=== PATIENT | male | born 1955 | race Caucasian/White ===

== ENCOUNTER 2018-02-10 11:24 | Outpatient (CLI) | payer MEDICARE, SELFPAY ==
--- NOTE | 2018-02-10 11:34 | DI.RAD_ITS ---
SYMPTOMS/DIAGNOSIS: LUMBOSACRAL RADICULOPATHY, M54.16 LUMBAR SPINE: AP, lateral and bilateral oblique views. There are no priors for comparison. There are five lumbar type vertebral bodies. No spondylolysis or spondylolisthesis is identified. The disc heights are well maintained. There are small endplate osteophytes present on multiple levels of the lumbar spine. There are degenerative changes of the facets seen in the lower lumbar spine. No acute fractures or subluxations are seen. IMPRESSION: Moderate degenerative changes of the lumbar spine.
== END 2018-02-10 11:44 ==
LOC: LBO 11:27 → DI 11:27
PROVIDERS: Visit Provider Family Medicine
DX: M54.6 Pain in thoracic spine (principal); M47.26 Other spondylosis with radiculopathy, lumbar region
CPT/HCPCS: 72110

== ENCOUNTER → 2018-05-16 09:02 | Outpatient (BNVA) | payer MEDICARE, SELFPAY | PROVIDERS: PCP Family Medicine; Visit Provider Physical Therapy Assistant | DX: Z12.11 Encounter for screening for malignant neoplasm of colon (principal) ==

== ENCOUNTER 2018-06-13 09:01 | Day surgery (SDC) | payer MEDICARE, SELFPAY ==
--- NOTE | 2018-06-13 06:37 | W.PM.DSUDISC ---
Discharge Plan Disposition Patient Disposition: HOME Condition: Good Discharge Details Reason For Visit: Colon Cancer screening Attending Provider: Naomi Hannah Primary Care Provider: Matt Muñoz Home Meds and New Rx's Prescriptions: Continued acetaminophen-codeine [Tylenol-Codeine #3] 300-30 mg Tablet 1 - 2 tab PO .Q4-6 PRNRF: 0 Discontinued polyethylene glycol 3350 17 gram/dose powder 238 g PO ONCE Qty: 238 RF: 0 bisacodyl [Dulcolax (bisacodyl)] 5 mg tablet,delayed release (DR/EC) 5 mg PO ONCE Qty: 4 RF: 0 Discharge Instructions Instructions: Colonoscopy (DC), Diverticulosis (GEN), Colorectal Polyps (DC) Additional Instructions: Findings: 6 polyps, all of them most likely pre-malignant diverticulosis Follow up: 3-5 years Please call if you develop: fevers >101.5 Nausea or Vomiting Abdominal pain that is not transient DAY SURGERY UNIT POST COLONOSCOPY INSTRUCTIONS 1. Because there will be medication in your system for the next 24 hours, you may feel a little sleepy. Your coordination will be affected. Therefore: a. Do not drive or operate dangerous equipment for 24 hours. b. Do not drink alcohol beverages for 24 hours (not even beer). c. Plan to go home and rest for the day. 2. Generally there are no restrictions on your activity after a day or so has gone by, but you may feel a bit fatigued for a few days. 3 After you arrive home you may have a light meal and return to a normal diet as you can tolerate it without feeling sick to your stomach. 4. After surgery, you may feel pain or discomfort. This should be only transient, but if it persists please contact your doctor. 5. If there are any questions regarding the findings of your procedure, please feel free to contact your doctor. 6. If you are unable to contact your doctor with a problem, contact the hospital at [phone]. 7. Continue all your regular medications unless directed otherwise. I understand the above instructions and have no questions. Signature of Patient or Responsible Adult Escort Date/Time Name of Responsible Adult Escort Signature of Nurse Date/Time Activity:: Activity as Tolerated Diet:: High fiber Discharge Orders Discharge Orders: Discharge Order (Routine); Ordered 06/13/18 Ordered By: Naomi Hannah DS: Diagnosis Discharge Diagnosis (1) S/P colonoscopy: Status: Acute (2) Colorectal polyps: Status: Acute (3) Diverticulosis large intestine w/o perforation or abscess w/o bleeding: Status: Acute
--- NOTE | 2018-06-13 06:38 | COLE_ITS ---
Date of service: 06/13/18 Time of Service: 10:46 Colonoscopy Report Date of procedure: 06/13/18 Pre-op diagnosis general: Colon Cancer Screening Post-op diagnosis procedure note: other (Diverticulosis of descending and sigmoid colon, multiple pre-malignant polyps) Procedure: Colonoscopy with polypectomy by cold forceps and hot snare Surgeon: Naomi Hannah Anesthesia proc note operative: other (General/ ASA2 /ranjana Aguilar, ISOBUTYLENE OPERATOR CHIEF) Estimated blood loss (mL): 5 Pathology: other (Transverse polyp x2, descending, sigmoid x3) Complications: None Disposition: no change Indications: Mr. Perry is a 62-year-old gentleman who was seen in the office for a screening colonoscopy. He has no family history of colon cancer that he is aware of. Risks, benefits and complications have been reviewed. Complications include but are not limited to bleeding, pain, perforation, missed small lesion/polyp, sore throat, aspiration and adverse reaction to the medications. Questions were entertained and answered to their satisfaction and they wished to proceed. No guarantees were given or implied. Prep: Miralax/Dulcolax Procedure Start Time: 10:46 Procedure End Time: 11:29 Retraction Time: 10:53 Findings: 6 polyps One larger pedunculated polyp in the sigmoid colon at 30 cm removed with a hot snare Procedure Description: After informed consent was obtained the patient was taken to the procedure room and placed in a left decubitous position. Monitors were applied and a time out was done. The patients name, date of , procedure, allergies to medications and metal in their body was reviewed. The patient was then sedated. Once sedated and comfortable a rectal exam was done. External exam was normal. Internal exam revealed a normal sphincter tone and no palpable masses. The prostate felt smooth. The scope was then introduced and retro-flexed. No internal hemorrhoids were identified. The scope was then advanced to the cecum without difficulty. The TI and appendiceal orifice were identified. The prep was adequate. The scope was then slowly retracted over 36 minutes back into the rectum. Polyps were removed with cold forceps in the transverse colon, a second polyp was removed with a hot snare in the transverse colon, one polyp was removed in the descending colon removed with a hot snare, one larger (1.5 cm) peduncultaed polyp was removed with a hot snare (at 30 cm). A long stalk was noted to be left behind so this was trimmed using the hot snare. 2 more polyps were removed in the sigmoid colon with cold forceps at 20 cm . There was severe diverticulosis of the sigmoid and descending colon. The scope was removed and the patient was woken up and taken back to Same day surgery in stable condition. The patient tolerated the procedure well and there were no immediate complications. Follow up: The patient should follow up in 3-5 years unless they develop changes in bowel habits or other new gastrointestinal complaints.
[2018-06-13 09:30] VITALS: BP 135/89; PULSE 77; RESP 16; TEMP 36.1; O2SAT 96
[2018-06-13] MEDS: Lactated Ringers 1,000 ML 80 ML IV (09:54)
--- NOTE | 2018-06-13 11:00 | BOWEL_PTH ---
PATIENT: Tyler Perry LOC: [facility] U#:[id number] AGE/SX: 62/M ROOM: RE06/13/[address]: Naomi Hannah MD : [id number] BED: DIS: 06/13/2018 SPEC #: [id number] RECD: 06/13/18 12:44 STATUS: ISIS RERamiro #: [id number] GUERRERO: 06/13/18 11:[address]: Naomi Hannah DEPT: Surgical Specimen RECD BY: Martine Harrison ENTERED: 06/13/18 12:48 SP TYPE: Bowel OTHR DR: Matt Muñoz Tissues: 1 - BIOPSY BOWEL 2 - BIOPSY BOWEL 3 - BIOPSY BOWEL 4 - BIOPSY BOWEL Procedures: GROSS AND MICRO LEVEL 4 Comments: [id number]
[2018-06-13 12:24] VITALS: BP 135/87; PULSE 62; RESP 18; TEMP 35.9; O2SAT 98
== END 2018-06-13 13:15 | disposition home or self-care (01) ==
LOC: SUR 09:02
PROVIDERS: PCP Family Medicine; Visit Provider Surgery
PROC: 0DJD8ZZ Inspection of Lower Intestinal Tract, Via Natural or Artificial Opening Endoscopic (ICD-10-PCS; CPT 45378; principal; 2018-06-13 10:15)
DX: Z12.11 Encounter for screening for malignant neoplasm of colon (principal); D12.3 Benign neoplasm of transverse colon; D12.4 Benign neoplasm of descending colon; D12.5 Benign neoplasm of sigmoid colon; D12.6 Benign neoplasm of colon, unspecified; K57.30 Diverticulosis of large intestine without perforation or abscess without bleeding
CPT/HCPCS: 45385; 45380; 88305

== ENCOUNTER 2018-09-01 15:53 | Emergency (ER) | payer MEDICARE, SELFPAY ==
[2018-09-01 16:10] VITALS: BP 148/94; PULSE 100; RESP 16; TEMP 37; O2SAT 97
--- NOTE | 2018-09-01 16:40 | W.ED.GENAD ---
Discharge Plan Disposition Patient Disposition: HOME Condition: Fair Discharge Details Chief Complaint: RashLesion Clinical Impression: Acute Lyme disease Primary Care Provider: Matt Muñoz ED Provider: Savannah Shin Home Meds and New Rx's Prescriptions: New doxycycline hyclate 100 mg capsule 100 mg PO BID Qty: 42 RF: 0 Continued acetaminophen-codeine [Tylenol-Codeine #3] 300-30 mg Tablet 1 - 2 tab PO .Q4-6 PRNRF: 0 Discharge Instructions Instructions: Doxycycline (By mouth), Lyme Disease (ED) Additional Instructions: Encourage hydration. Please take doxycycline as prescribed. Even if symptoms improve, please take the entire course. Please follow-up with your primary care for reevaluation in 1 week. Attached information on doxycycline, please try to avoid direct sun exposure as discussed. If you develop chest pain, shortness of breath or the new/worsening symptoms please seek care urgently once again. Referrals: Matt Muñoz [Primary Care Provider] - Discharge Data Discharge Date/Time-TO BE ENTERED AT DEPARTURE: 09/01/18 17:18 Medical Decision Making Patient is 63-year-old male presenting today with chief complaint of rash to the right axilla that is been present for the past 5 to 7 days. Unknown exposure. States that overall he has no sensation of this. On exam, patient has a well-defined erythema migrans rash. No evidence of bite. I do not see any in his back areas of his torso. Patient appears nontoxic, normal cardiac exam, patient is noted to be slightly tachycardic at 100 bpm. This may be associate with anxiety. Plan to obtain EKG to evaluate for any evidence of block. We will treat the patient with doxycycline. Discussed the risks associated with doxycycline and expected side effects. Advise close follow-up with primary care, no call them tomorrow to set up an appointment for next week. EKG reviewed by Dr. Falcon. NSR rate 81. Notable for intraventricular conduction delay with J point elevation. No block. No previous EKG to compare too, we will attempt to get one from PCP. Unable to get EKG for comparison. Discussed with patient at length. This is not consistent with Lyme. Patient will be treated with doxycycline. Discussed possible side effects. he will f/u wit PCP next week for reevaluation. discussed possible repeat of EKG which patient will advocate for. We discussed new/worsening symptoms and when to seek care rugently once again. All quesitons and concerns were addressed, he is in agreement iwth this plan. HPI General Mode of arrival: ambulatory. Date/Time Provider Initiated Documentation: 09/01/18 16:39. Limitations to Documentation: no limitations. Information obtained by: patient and RN notes reviewed. History of Present Illness 63 year old M presents to the emergency department with the chief complaint of rash to right axilla, described as mild (denies pain at this time, initially, felt like a bite), and is localized to the right and upper extremity. Patient reports no radiation. Patient started experiencing this day(s) (5-7) and it has been constant. No relieving factors improve symptom(s), No exacerbating factors reported . Patient notes no other symptoms.; denies chest pain, cough, diaphoresis, fever/chills, headaches, loss of appetite, malaise, shortness of breath and weakness. Patient did receive the following treatments prior to arrival, none Related Data Home Medications Medication Instructions Recorded Confirmed acetaminophen-codeine 1 - 2 tab PO .Q4-6 PRN 06/08/18 06/13/18 [Tylenol-Codeine #3] doxycycline hyclate 100 mg PO BID #42 cap 09/01/18 Previous Rx's Medication Instructions Recorded doxycycline hyclate 100 mg PO BID #42 cap 09/01/18 Allergies Allergy/AdvReac Type Severity Reaction Status Date / Time No Known Allergies Allergy Unverified 06/13/18 09:27 General Stated Complaint: RashLesion JOSE JUAN: 4 Review of Systems Constitutional Reports as per HPI, Denies chills, Denies fever(s), Denies headache(s) and Denies weakness ENT Denies headache(s) Cardiovascular Reports as per HPI Respiratory Reports as per HPI and Denies cough Musculoskeletal Reports as per HPI and Denies tingling Integumentary/Breasts Reports as per HPI, Reports rash and Denies wounds Neurologic Reports as per HPI, Denies headache(s), Denies tingling, Denies paresthesias and Denies weakness [facility] Medical History Colorectal polyps (Acute ~06/13/18) Diverticulosis large intestine w/o perforation or abscess w/o bleeding (Acute ~06/13/18) Dyslipidemia (Chronic) Lumbosacral radiculopathy (Chronic) Surgical History H/O right knee surgery (Acute) S/P colonoscopy (Acute ~06/13/18) Social History Smoking/Tobacco Use Status: Former Tobacco Use Quit Date: 02/09/88 Alcohol Intake: current Alcohol Intake frequency: holidays/special occasions only Alcohol type: beer Substance use type: marijuana Details: alcohol: t-7, marijuana: t-7, edibles Do you feel safe at home: Yes Do you feel safe in your relationship?: Yes Exam Const General: cooperative, healthy appearing, comfortable, no acute distress, well developed and well groomed Nutritional Appearance: average body habitus and well nourished Orientation: alert and awake Resp Effort & Inspection: normal respiratory effort, able to speak in complete sentences and no respiratory distress Auscultation: clear to auscultation bilaterally Cardio Rate: regular rate Rhythm: regular rhythm Heart Sounds: S1 normal and S2 normal Back/Spine/Pelvis Thoracic/Lumbar Spine: thoracic and lumbar spine normal to inspection Skin General skin exam: erythema, no fluctuance, no hypertrophy and no induration Rashes: rashes noted (erythema migranes to right axilla) Neuro General: alert and awake Cognition: normal cognition Speech: speech normal Gait: normal gait Motor: muscle tone normal throughout Sensory Exam: no sensory deficits noted Extrem Right upper extremity: full ROM, normal capillary refill, edema and no joint enlargement; abnormal to inspection (rash in right axilla as above) Psych Appearance: grossly normal and well kempt Mental Status: mental status grossly normal Speech and Movement: speech and movement normal Course Vital Signs Temperature 37 C 09/01/18 16:10 Pulse 100 H 09/01/18 16:10 Respiratory Rate 16 09/01/18 16:10 Blood Pressure 148/94 H 09/01/18 16:10 Pulse Oximetry 97 09/01/18 16:10 Temperature 37 C 09/01/18 16:10 Temperature Source Skin 09/01/18 16:10 Pulse 100 H 09/01/18 16:10 Respiratory Rate 16 09/01/18 16:10 Respiratory Effort Non-Labored 09/01/18 16:11 Blood Pressure 148/94 H 09/01/18 16:10 Blood Pressure Position Sitting 09/01/18 16:10 Pulse Oximetry 97 09/01/18 16:10 Oxygen Delivery Method Room Air 09/01/18 16:10 Oxygen Flow Rate 0 09/01/18 16:10
[2018-09-01 17:17] VITALS: BP 148/94; PULSE 100; RESP 16; TEMP 37; O2SAT 97
== END 2018-09-01 17:18 | disposition home or self-care (01) ==
PROVIDERS: Emergency Provider Physician Assistant; PCP Family Medicine
DX: A69.20 Lyme disease, unspecified (principal); R00.0 Tachycardia, unspecified; R94.31 Abnormal electrocardiogram [ECG] [EKG]
CPT/HCPCS: 93005; 99283; 93010

== ENCOUNTER 2018-09-09 10:18 | Outpatient (CLI) | payer MEDICARE, SELFPAY ==
--- NOTE | 2018-09-09 08:50 | MERGE_ITS ---
*[facility]* *[facility]* [address] [place] [address] Date of study: 09/09/2018 Transthoracic Echocardiography M-mode, complete 2D, complete spectral Doppler, and color Doppler *STUDY CONCLUSIONS* Summary: 1. Left ventricle: The cavity size was normal. Wall thickness was normal. Systolic function was normal. The estimated ejection fraction was 55-60%. Wall motion was normal; there were no regional wall motion abnormalities. 2. Aortic valve: Mildly calcified annulus. Trileaflet; normal thickness leaflets. There was trivial regurgitation. 3. Ascending aorta: The ascending aorta was mildly dilated. 3.7 cm. 4. Mitral valve: There was mild regurgitation. 5. Right ventricle: The cavity size was normal. Wall thickness was normal. Systolic function was normal. 6. Pulmonary arteries: Pulmonary systolic pressure was increased, in the range of 35mm Hg to 40mm Hg. *PATIENT PRESENTATION* Height: 185.4cm (73in ) S/D Pressure: 133 / 74 Weight: 93kg (204.6lb ) BSA: 2.2m^2 Test start time: 09:00 AM. Test stop time: 10:00 AM. PERFORMING Unknown PERFORMING [facility] CONSULTING Eduardo Muñoz MD ORDERING Eduardo Muñoz MD REFERRING Eduardo Muñoz MD PROGRAM DIRECTOR AIR TALENT RT Khalida (R)([place])SUPA *PROCEDURE DATA* Procedure information: This study was interpreted by [facility]. Pertinent images and digital data are archived for permanent storage and are available for subsequent review. No prior study was available for comparison. Study status: Routine. Transthoracic echocardiography. M-mode, complete 2D, complete spectral Doppler, and color Doppler. A Transthoracic Echocardiogram was performed. Scanning was performed from the parasternal, apical, subcostal, and suprasternal notch acoustic windows. Images were obtained using an [id number] cardiac ultrasound machine. Image quality was adequate. Study completion: The patient tolerated the procedure well. History: PMH: Left ventricular hypertrophy. Cardiomegaly. I 51.7. *CARDIAC ANATOMY* Left ventricle: The cavity size was normal. Wall thickness was normal. Systolic function was normal. The estimated ejection fraction was 55-60%. Wall motion was normal; there were no regional wall motion abnormalities. Diastolic parameters were not diagnostic. Aortic valve: Mildly calcified annulus. Trileaflet; normal thickness leaflets. Mobility was not restricted. Doppler: Transvalvular velocity was within the normal range. There was no stenosis. There was trivial regurgitation. VTI ratio of LVOT to aortic valve: 0.75. Valve area (VTI): 2.4cm^2. Indexed valve area (VTI): 1.1cm^2/m^2. Peak velocity ratio of LVOT to aortic valve: 0.68. Valve area (Vmax): 2.2cm^2. Indexed valve area (Vmax): 1cm^2/m^2. Mean velocity ratio of LVOT to aortic valve: 0.77. Valve area (Vmean): 2.4cm^2. Indexed valve area (Vmean): 1.1cm^2/m^2. Mean gradient (S): 5.9mm Hg. Peak gradient (S): 13.1mm Hg. Aorta: Aortic root: The aortic root was normal in size. Ascending aorta: The ascending aorta was mildly dilated. 3.7 cm. Mitral valve: Structurally normal valve. Mobility was not restricted. Doppler: Transvalvular velocity was within the normal range. There was no evidence for stenosis. There was mild regurgitation. Valve area by pressure half-time: 4.4cm^2. Indexed valve area by pressure half-time: 2cm^2/m^2. Peak gradient (D): 3.4mm Hg. Left atrium: The atrium was normal in size. Right ventricle: The cavity size was normal. Wall thickness was normal. Systolic function was normal. Pulmonic valve: The pulmonary valve appears to be grossly normal. Doppler: Transvalvular velocity was within the normal range. There was no evidence for stenosis. There was trivial regurgitation. Peak gradient (S): 5.5mm Hg. Tricuspid valve: Structurally normal valve. Doppler: Transvalvular velocity was within the normal range. There was no evidence for stenosis. There was trivial regurgitation. Pulmonary artery: Pulmonary systolic pressure was increased, in the range of 35mm Hg to 40mm Hg. Right atrium: The atrium was normal in size. Pericardium: There was no pericardial effusion. Systemic veins: Inferior vena cava: Well visualized. The vessel was patent and normal in size. The respirophasic diameter changes were in the normal range (greater than or equal to 50%). Baseline ECG: Normal sinus rhythm. Measurements Left ventricle Value Reference LV ID, ED, PLAX 4.6 cm 3.5 - 6.0 LV ID, ES, PLAX 3.4 cm 2.1 - 4.0 LV PW thickness, ED, PLAX 0.9 cm LV end-diastolic volume, 1-p A2C 103 ml LV ejection fraction, 1-p A2C 49 % LV end-diastolic volume, 1-p A4C 100 ml LV ejection fraction, 1-p A4C 51 % LV e', lateral 0.105 m/sec LV E/e', lateral 9 LV e', medial 0.071 m/sec LV E/e', medial 13 LV e', average 0.088 m/sec LV E/e', average 10 Ventricular septum Value Reference IVS thickness, ED, PLAX 1.0 cm LVOT Value Reference LVOT ID, A-P 2.0 cm LVOT area 3.2 cm^2 LVOT peak velocity, S 1.23 m/sec LVOT mean velocity, S 0.89 m/sec LVOT VTI, S 24.8 cm LVOT peak gradient, S 6.1 mm Hg LVOT mean gradient, S 3.6 mm Hg Stroke volume (SV), LVOT DP 78 ml Stroke index (SV/bsa), LVOT DP 36 ml/m^2 Aortic valve Value Reference Aortic valve peak velocity, S 1.8 m/sec Aortic valve mean velocity, S 1.2 m/sec Aortic valve VTI, S 33.0 cm Aortic mean gradient, S 5.9 mm Hg Aortic peak gradient, S 13.1 mm Hg VTI ratio, LVOT/AV 0.75 Aortic valve area, VTI 2.4 cm^2 Velocity ratio, peak, LVOT/AV 0.68 Aortic valve area, peak velocity 2.2 cm^2 Velocity ratio, mean, LVOT/AV 0.77 Aortic valve area, mean velocity 2.4 cm^2 Aortic valve area/bsa, mean velocity 1.1 cm^2/m^2 Aorta Value Reference Aortic root ID, ED 3.2 cm Ascending aorta ID, A-P, S 3.7 cm Left atrium Value Reference LA ID, A-P, ES 3.5 cm LA ID/bsa, A-P 1.6 cm/m^2 <=2.2 LA volume/bsa, ES, 1-p A4C 23 ml/m^2 LA volume, ES, 2-p 43 ml LA volume/bsa, ES, 2-p 19 ml/m^2 LA/aortic root ratio 1.09 Mitral valve Value Reference Mitral E-wave peak velocity 0.92 m/sec Mitral A-wave peak velocity 0.9 m/sec Mitral deceleration time 171 ms 150 - 230 Mitral pressure half-time 50 ms Mitral peak gradient, D 3.4 mm Hg Mitral E/A ratio, peak 1.02 Mitral valve area, PHT, DP 4.4 cm^2 Tricuspid valve Value Reference Tricuspid regurg peak velocity 2.8 m/sec Tricuspid peak RV-RA gradient 32.2 mm Hg Right atrium Value Reference RA area, ES, A4C 14.9 cm^2 8.3 - 19.5 Pulmonic valve Value Reference Pulmonic peak gradient, S 5.5 mm Hg Legend: (L) and (H) [place] values outside specified reference range. I have personally reviewed the images and have reviewed and edited the reported findings. Electronically signed by Alex Campos 09/09/2018 11:49
== END 2018-09-09 10:38 ==
PROVIDERS: PCP Family Medicine; Visit Provider Family Medicine
DX: I51.7 Cardiomegaly (principal); I35.8 Other nonrheumatic aortic valve disorders; I34.0 Nonrheumatic mitral (valve) insufficiency; R94.31 Abnormal electrocardiogram [ECG] [EKG]
CPT/HCPCS: 93306

== ENCOUNTER 2018-09-27 07:05 | Outpatient (CLI) | payer MEDICARE, SELFPAY ==
[2018-09-27 07:42] LABS: HCT 43.6 % (40.0-50.0); HGB 14.4 g/dL (13.5-17.5); Mean Corpuscular Hemoglobin 29.1 pg (27.0-33.0); Mean Corpuscular Volume 88.3 fL (80-95); Mean Platelet Volume 10.5 fL (8.0-11.0); Platelet Count 182 x1000/uL (130-400); RBC 4.94 m/cumm (4.50-6.00); White Blood Cell Count 6.99 k/cumm (4.4-10.8)
[2018-09-28 12:50] LABS: Lyme Ab w Rflx to Lyme Confirm Negative
[2018-09-28 22:00] LABS: Anaplasma phagocytophilum Negative (Negative); B. miyamotoi PCR Negative (Negative); Babesia divergens/MO-1 Negative (Negative); Babesia duncani Negative (Negative); Babesia microti Negative (Negative); Ehrlichia chaffeensis Negative (Negative); Ehrlichia ewingii/canis Negative (Negative); Ehrlichia muris eauclairensis Negative (Negative)
== END 2018-09-27 07:25 ==
PROVIDERS: PCP Family Medicine; Visit Provider Family Medicine
DX: W57.XXXA Bitten or stung by nonvenomous insect and other nonvenomous arthropods, initial encounter (principal); T14.8XXA Other injury of unspecified body region, initial encounter; Z11.8 Encounter for screening for other infectious and parasitic diseases
CPT/HCPCS: 36415; 85027; 87798; 86618

== ENCOUNTER 2019-03-31 11:25 | Emergency (ER) | payer MEDICARE, SELFPAY ==
--- NOTE | 2019-03-31 11:38 | ED.GENADUL_ITS ---
Discharge Plan Disposition Patient Disposition: HOME Condition: Good Discharge Details Chief Complaint: Headache Clinical Impression: URI (upper respiratory infection) Primary Care Provider: Matt Muñoz ED Provider: Savannah Shin Home Meds and New Rx's Prescriptions: No Action acetaminophen-codeine [Tylenol-Codeine #3] 300-30 mg Tablet 1 - 2 tab PO .Q4-6 PRNRF: 0 Discharge Instructions Instructions: Upper Respiratory Infection (ED) Additional Instructions: Encourage water intake. Tylenol and/or ibuprofen as needed for discomfort. You may use nasal saline to help with congestion. Try to put the head of the bed up more at night to help with the postnasal drip. If you develop difficulty breathing, shortness of breath, fevers or other new/worsening symptoms please seek care urgently once again. Otherwise, please follow-up with primary care if improving in the next week. Referrals: Matt Muñoz [Primary Care Provider] - Medical Decision Making Patient is 63-year-old male presenting today with chief complaint of sinus headache. He reports that he has had frontal and maxillary discomfort, congestion, mild cough for the past 3 days. Subjective fever yesterday. Denies any rash. Denies any chest pain. No shortness of breath. No difficulty breathing. No recent travel. On exam, patient is resting comfortably. He is tender over the frontal and maxillary sinuses with palpation. He appears well-hydrated. Lungs are clear. No nuchal rigidity. No rashes noted. Exam is otherwise normal. Advised URI. Advised likely viral. I did encourage close follow-up with primary care. We did discuss supportive care. Patient does describe having cough worse at night and feeling like he has postnasal drip. We did discuss symptomatic management. He was given return precautions. All questions and concerns were addressed and is agreement this plan. HPI General Mode of arrival: ambulatory . Date/Time Provider Initiated Documentation: 03/31/19 11:38 . Limitations to Documentation: no limitations . Information obtained by: patient and RN notes reviewed . History of Present Illness 63 year old M presents to the emergency department with the chief complaint of sinus discomfort, cough, congestion, described as moderate, with intensity rated at 6. Quality is described as aching, and is localized to the face (indicates maxillary and frontal sinuses as are a of discomfort). Patient reports no radiation. Patient started experiencing this day(s) (3) and it has been constant. No relieving factors improve symptom(s), No exacerbating factors reported . Patient notes cough (3 coughs per day), fever/chills (subjective fever yesterday) and headaches (indicates sinuses as area of pain); denies chest pain, diaphoresis, loss of appetite, nausea/vomiting, rash, shortness of breath and weakness. Patient did receive the following treatments prior to arrival, none Related Data Home Medications Medication Instructions Recorded Confirmed acetaminophen-codeine 1 - 2 tab PO .Q4-6 PRN 06/08/18 06/13/18 [Tylenol-Codeine #3] Allergies Allergy/AdvReac Type Severity Reaction Status Date / Time No Known Allergies Allergy Unverified 03/31/19 11:52 General JOSE JUAN: 4 Review of Systems Constitutional Constitutional: Reports as per HPI and Denies headache(s) Eyes Eyes: Reports as per HPI, Denies eye discharge and Denies irritation ENT Ears, Nose, Mouth, and Throat: Reports as per HPI and Denies headache(s) Cardiovascular Cardiovascular: Reports as per HPI, Denies chest pain and Denies dyspnea Respiratory Respiratory: Reports as per HPI and Denies dyspnea Gastrointestinal Gastrointestinal: Reports as per HPI, Denies abdominal pain, Denies change in bowel habits, Denies nausea and Denies vomiting Integumentary/Breasts Skin/Breast: Reports as per HPI and Denies rash Neurologic Neurologic: Reports as per HPI and Denies headache(s) [facility] Social History Smoking/Tobacco Use Status: Former Tobacco Use Quit Date: 02/09/88 Alcohol Intake: current Alcohol Intake frequency: holidays/special occasions only Alcohol type: beer Drug use: Occasionally Substance use type: marijuana Details: alcohol: t-7, marijuana: t-7, edibles Do you feel safe at home: Yes Do you feel safe in your relationship?: Yes Exam Const General: cooperative, healthy appearing, comfortable, no acute distress, well developed and well groomed Nutritional Appearance: average body habitus and well nourished Orientation: alert and awake [facility] Head: normal to inspection, normocephalic and atraumatic Ears: hearing grossly normal bilaterally, external ears normal and TM's normal bilaterally General nose exam: external nose normal and nares normal Face and sinus: normal facial exam, face symmetric and sinus tenderness frontal and maxillary Mouth: oral mucosae normal, lip normal, tongue normal, oropharynx normal and moist mucous membranes Teeth and gingiva: dentition normal Throat: posterior oropharynx normal, tonsils normal and uvula midline Eyes General: appearance normal, both eyes and all related structures Neck Neck: normal visual inspection, full ROM, no lymphadenopathy and no meningeal signs Resp Effort & Inspection: normal respiratory effort, able to speak in complete sentences and no respiratory distress Auscultation: clear to auscultation bilaterally, no rales, no rhonchi and no wheezes Cardio Rate: regular rate Rhythm: regular rhythm Heart Sounds: S1 normal and S2 normal Skin General skin exam: no rashes or lesions noted Neuro General: alert and awake Cognition: normal cognition Speech: speech normal Gait: normal gait Psych Appearance: grossly normal and well kempt Mental Status: mental status grossly normal Speech and Movement: speech and movement normal
[2019-03-31 11:47] VITALS: BP 152/98; PULSE 80; RESP 18; TEMP 36.6; O2SAT 96
[2019-03-31 12:00] VITALS: BP 152/98; PULSE 80; RESP 18; TEMP 36.6; O2SAT 96
== END 2019-03-31 12:00 | disposition home or self-care (01) ==
PROVIDERS: Emergency Provider Physician Assistant; PCP Family Medicine
DX: J06.9 Acute upper respiratory infection, unspecified (principal)
CPT/HCPCS: 99282

== ENCOUNTER 2021-05-14 02:53 | Outpatient (CLI) | payer MEDICARE, SELFPAY ==
[2021-05-14 07:44] LABS: HCT 44.2 % (40.0-50.0); HGB 14.4 g/dL (13.5-17.5); MCH 28.8 pg (27.0-33.0); MCHC 32.6 % (32.0-36.0); MCV 88.4 fL (80-95); MPV 9.7 fL (8.0-11.0); Platelet Count 161 10^3/uL (130-400); WBC 6.85 10^3/uL (4.4-10.8)
[2021-05-14 09:03] LABS: ALT 24 U/L (16-63); AST 15 U/L (15-37); Albumin 4.2 g/dL (3.4-5.0); Alkaline Phosphatase 69 U/L (46-116); Anion Gap 6.5 mmol/L (3-11); BUN 15 mg/dL (7-18); Bilirubin, Total 0.6 mg/dL (0.2-1.0); CO2 31.5 mmol/L (21.0-32.0); CREATININE 1.1 mg/dL (0.70-1.30); Calcium 8.9 mg/dL (8.5-10.1); Calculated LDL 148 mg/dL (<100); Chloride 105 mmol/L (98-107); Cholesterol 209 mg/dL (<200); Glucose 100 mg/dL (74-106); HDL Cholesterol 37 mg/dL (40-60); Potassium 4.4 mmol/L (3.5-5.1); Sodium 143 mmol/L (136-145); Total Protein 7.3 g/dL (6.4-8.2); Triglyceride 120 mg/dL (<150)
== END 2021-05-14 02:54 | disposition home or self-care (01) ==
LOC: LBO 02:53
PROVIDERS: PCP Family Medicine; Visit Provider Family Medicine
DX: E78.5 Hyperlipidemia, unspecified (principal); Z51.81 Encounter for therapeutic drug level monitoring
CPT/HCPCS: 36415; 80053; 80061; 84153; 85027

== ENCOUNTER 2021-06-15 05:58 | Emergency (ER) | payer MEDICARE, SELFPAY ==
[2021-06-15] VITALS (25 sets, daily range): BP systolic 102–132; BP diastolic 67–87; PULSE 86–110; RESP 13–17; TEMP 36.5–36.7; O2SAT 93–96
--- NOTE | 2021-06-15 06:00 | RT.EKG_ITS ---
APPROVED REPORT Exam: Resting ECG Reason for Exam: short of breath Patient Location: E HR:104 bpm ECG Measurements Heart Rate 104 AXIS UT 167 P 64 QRSd 109 QRS -12 QT 323 T 145 QTc 424 Conclusion Sinus tachycardia...rate> 99 Incomplete left bundle branch block...QRSd>110mS, terminal axis(-90,-1) LVH with secondary repolarization abnormality...multi-LVH criteria, abnrm ST-T no significant change from prior
--- NOTE | 2021-06-15 06:39 | ED.GENADUL_ITS ---
Discharge Plan Disposition Patient Disposition: HOME Condition: Stable Discharge Details Clinical Impression: COVID-19 Primary Care Provider: Matt Muñoz ED Provider: Joann Gray Home Meds and New Rx's Prescriptions: New Paxlovid (EUA) 150 mg x 2- 100 mg tablet See Rx Instructions PO .COMPLEX Qty: 6 0RF Rx Instructions: orally per package directions Continued aspirin 325 mg tablet 650 mg PO DAILY 0RF Rx Instructions: takes 2 aspirin every other day, alternating with the acetaminophen-codeine ibuprofen 200 mg tablet 200 mg PO Q6H PRN0RF cyclobenzaprine 5 mg tablet 5 mg PO TID PRN0RF Biofreeze (menthol) 4 % gel 1 applic topical QD-BID PRN0RF acetaminophen-codeine [Tylenol-Codeine #3] 300-30 mg Tablet 1 - 2 tab PO .Q4-6 PRN0RF Discharge Instructions Instructions: COVID-19 (Coronavirus Disease 2019) (ED) Additional Instructions: You are positive for the COVID-19 virus. Drink plenty of fluids and get plenty of rest. Alternate tylenol and motrin as needed and directed for pain. A prescription for Paxlovid has been sent electronically to [facility] in [facility]. Follow-up with your primary care doctor in 1 week. Return to the emergency department with any worsening or new concerning symptoms. Discharge Data Discharge Date/Time-TO BE ENTERED AT DEPARTURE: 06/15/21 08:42 Discharge Physician: Joann Gray Medical Decision Making <Ric Burden MD - Last Filed: 06/15/21 07:51> [age]-year-old male, former smoker, here with myalgia, headache, fatigue, fever and chills over the past 2 days. His partner is positive for COVID with illness over the past few days. He has taken home COVID test that have been negative so far. No signs of focal bacterial infection on exam. Screening EKG was ordered by nursing for tachycardia. This was reviewed and interpreted by me: Please see report, sinus tachycardia, no acute process, no significant change from prior EKG. On examination patient is hemodynamically stable. Patient does meet criteria for pack paxlovid and is interested in treatment. I will check COVID test to confirm positivity. Labs to assess renal. -- Creatinine normal. <Joann Gray, DO - Last Filed: 06/17/21 08:17> 06/15/21 Dr. Burden 6[age]-year-old male, former smoker, here with myalgia, headache, fatigue, fever and chills over the past 2 days. His partner is positive for COVID with illness over the past few days. I told him that they open at 9 and if they have not found it otherwise to have has taken home COVID test that have been negative so far. No signs of focal bacterial infection on exam. Screening EKG was ordered by nursing for tachycardia. This was reviewed and interpreted by me: Please see report, sinus tachycardia, no acute process, no significant change from prior EKG. On examination patient is hemodynamically stable. Patient does meet criteria for pack paxlovid and is interested in treatment. I will check COVID test to confirm positivity. Labs to assess renal. -- Creatinine normal. 06/15/21 Dr. Gray 0800 --please see Dr. Burden's note for initial presentation, exam and plan. Ca se endorsed to follow-up on COVID test and if positive will discharge with prescription for Paxlovid. 0830 --COVID 19 PCR is positive. Discussed with pharmacy and [facility] has Paxlovid available which was confirmed on Covid-19 therapeutics locater website. A prescription for Paxlovid was sent electronically to [facility]. He denies any shortness of breath and his oxygen saturation is 97% on room air. Advised to follow up with the primary care doctor for re-evaluation. Usual and customary return precautions given prior to discharge. Medical Records Medical records reviewed: Yes I reviewed the patient's medical records. Lab Data Lab results reviewed: Yes I reviewed the patient's lab results. Labs: Laboratory Tests Range/Units 06/15/21 06/15/21 06/15/21 06:10 06:10 06:50 WBC (4.4-10.8) 10^3/uL 10.03 RBC (4.36-5.78) 10^6/uL 5.39 Hgb (13.5-17.5) g/dL 15.2 Hct (40.0-50.0) % 45.7 MCV (80-95) fL 85 MCH (27.0-33.0) pg 28.2 MCHC (32.0-36.0) % 33.3 RDW (11.8-14.1) % 13.2 Plt Count (130-400) 10^3/uL 182 MPV (8.0-11.0) fL 10.6 Immature Gran % 0.3 Neutrophils % 86.4 Lymphocytes % 5.3 Monocytes % 7.4 Eosinophils % 0.1 Basophils % 0.5 Nucleated RBC % (0.0-0.3) % 0.0 Absolute Neutrophils (1.2-6.7) 10^3/uL 8.67 H Absolute Lymphocytes (1.2-3.4) 10^3/uL 0.53 L Absolute Monocytes (0.1-0.8) 10^3/uL 0.74 Absolute Eosinophils (0.0-0.7) 10^3/uL 0.01 Absolute Basophils (0.0-0.2) 10^3/uL 0.05 Sodium (136-145) mmol/L 140 Potassium (3.5-5.1) mmol/L 3.7 Chloride (98-107) mmol/L 104 Carbon Dioxide (21.0-32.0) mmol/L 25.8 Anion Gap (3-11) mmol/L 10.2 BUN (7-18) mg/dL 12 Creatinine (0.70-1.30) mg/dL 1.2 Estimated GFR/1.73 m2 (mL/min/1.73m2) >= 60.00 Glucose (74-106) mg/dL 133 H Calcium (8.5-10.1) mg/dL 9.1 COVID-19 Source Not Applicable SARS-CoV-2 (PCR) (Negative) Positive A Influenza Type A (PCR) (Negative) Negative Influenza Type B (PCR) (Negative) Negative RSV (PCR) (Negative) Negative HPI <Ric Burden MD - Last Filed: 06/15/21 07:51> General Mode of arrival: ambulatory . Date/Time Provider Initiated Documentation: 06/15/21 06:22 . Limitations to Documentation: no limitations . Information obtained by: patient . HPI Narrative: 65-year-old male presents with chief complaint of generally not feeling well. Patient notes his partner who he lives with has tested positive for COVID and has been sick for the past few days. He notes he has had symptoms including myalgias, headache, congestion, and brain fog over the past 2 days. Symptoms are moderate with no modifiers. He has no associated chest pain. No shortness of breath. Patient is fully vaccinated against COVID. Related Data Home Medications Medication Instructions Recorded Confirmed acetaminophen 300 mg-codeine 30 mg 1 - 2 tab PO .Q4-6 PRN 06/08/18 06/15/21 tablet (Tylenol-Codeine #3) aspirin 325 mg tablet 650 mg PO DAILY tab 03/28/21 06/15/21 cyclobenzaprine 5 mg tablet 5 mg PO TID PRN 03/28/21 ibuprofen 200 mg tablet 200 mg PO Q6H PRN 03/28/21 06/15/21 menthol 4 % topical gel (Biofreeze 1 applic TOPICAL QD-BID PRN 03/28/21 06/15/21 (menthol)) nirmatrelvir 150 mg x 2-ritonavir See Rx Instructions PO .COMPLEX #6 06/15/21 100 mg tablet (EUA) (Paxlovid tab (EUA)) Previous Rx's Medication Instructions Recorded nirmatrelvir 150 mg x 2-ritonavir See Rx Instructions PO .COMPLEX #6 06/15/21 100 mg tablet (EUA) (Paxlovid tab (EUA)) Allergies Allergy/AdvReac Type Severity Reaction Status Date / Time No Known Allergies Allergy Unverified 06/15/21 06:10 General Stated Complaint: RespSymp JOSE JUAN: 3 Review of Systems <Ric Burden MD - Last Filed: 06/15/21 07:51> All systems reviewed & are unremarkable except as noted in HPI and below Constitutional Constitutional: Reports chills and Reports fever(s) Respiratory Respiratory: Reports as per HPI and Denies cough Musculoskeletal Musculoskeletal: Reports as per HPI PFSH <Ric Burden MD - Last Filed: 06/15/21 07:51> All Active Problems (Updated 06/15/21 @ 08:08 by Joann Gray DO) COVID-19 (Acute) Diverticulosis large intestine w/o perforation or abscess w/o bleeding (Acute ~06/13/18) Colorectal polyps (Acute ~06/13/18) Encounter for screening colonoscopy (Acute) Medical History Dyslipidemia Lumbosacral radiculopathy Tinnitus, bilateral URI (upper respiratory infection) Surgical History H/O right knee surgery S/P colonoscopy (~06/13/18) Social History Smoking/Tobacco Use Status: Former Tobacco Use Quit Date: 02/09/88 Smoking risk assessment performed?: Yes Alcohol Intake: current Alcohol Intake frequency: holidays/special occasions only Alcohol type: beer Drug use: Occasionally Substance use type: marijuana Details: alcohol: t-7, marijuana: t-7, edibles Do you feel safe at home: Yes Do you feel safe in your relationship?: Yes Exam <Ric Burden MD - Last Filed: 06/15/21 07:51> Const General: cooperative and no acute distress HENMT Mouth: moist mucous membranes Eyes Conjunctivae: normal conjunctivae Sclera: normal sclerae Resp Auscultation: clear to auscultation bilaterally, no rales, no rhonchi and no wheezes Cardio Rate: regular rate and not tachycardic Rhythm: regular rhythm GI Palpation: soft, not firm, no guarding, no masses, not rigid and nontender Skin General skin exam: no rashes or lesions noted Neuro General: patient alert, patient awake and tone normal Extrem General: no edema Psych Appearance: grossly normal Mental Status: mental status grossly normal Speech and Movement: speech and movement normal Course <Ric Burden MD - Last Filed: 06/15/21 07:51> Vital Signs Vital signs: Vital Signs Temperature 36.5 C 06/15/21 06:07 Pulse 109 H 06/15/21 06:07 Respiratory Rate 16 06/15/21 06:07 Blood Pressure 132/87 06/15/21 06:07 Pulse Oximetry 96 06/15/21 06:07 Temperature 36.5 C 06/15/21 06:07 Temperature Source Skin 06/15/21 06:07 Pulse 109 H 06/15/21 06:07 Respiratory Rate 16 06/15/21 06:07 Respiratory Effort Non-Labored 06/15/21 06:11 Respiratory Depth Normal 06/15/21 06:11 Blood Pressure 132/87 06/15/21 06:07 Pulse Oximetry 96 06/15/21 06:07 Pain Level 10 06/15/21 06:07 Sign Out <Ric Burden MD - Last Filed: 06/15/21 07:51> Sign Out Data: Sign Out Comment: Follow-up COVID test and if positive plan to discharge on pack Paxlovid. Last updated by Ric Burden MD at 06/15/21 07:49
[2021-06-15 06:57] LABS: Abs Immature Grans 0.03 10^3/uL (0.0-0.06); Absolute Basophil Count 0.05 10^3/uL (0.0-0.2); Absolute Eosinophil Count 0.01 10^3/uL (0.0-0.7); Absolute Lymphocyte Count 0.53 10^3/uL (1.2-3.4); Absolute Monocyte Count 0.74 10^3/uL (0.1-0.8); Absolute Neutrophil Count 8.67 10^3/uL (1.2-6.7); Basophils % 0.5; Eosinophils % 0.1; HCT 45.7 % (40.0-50.0); HGB 15.2 g/dL (13.5-17.5); Immature Grans % 0.3; Lymphocytes % 5.3; MCH 28.2 pg (27.0-33.0); MCHC 33.3 % (32.0-36.0); MCV 85 fL (80-95); MPV 10.6 fL (8.0-11.0); Monocytes % 7.4; Neutrophils % 86.4; Platelet Count 182 10^3/uL (130-400); RBC 5.39 10^6/uL (4.36-5.78); RDW 13.2 % (11.8-14.1); RDW-SD 41.2 fL; WBC 10.03 10^3/uL (4.4-10.8)
[2021-06-15 07:11] LABS: Anion Gap 10.2 mmol/L (3-11); BUN 12 mg/dL (7-18); CO2 25.8 mmol/L (21.0-32.0); CREATININE 1.2 mg/dL (0.70-1.30); Calcium 9.1 mg/dL (8.5-10.1); Chloride 104 mmol/L (98-107); Glucose 133 mg/dL (74-106); Potassium 3.7 mmol/L (3.5-5.1); Sodium 140 mmol/L (136-145)
[2021-06-15 08:02] LABS: Influenza A PCR Negative (Negative); Influenza B PCR Negative (Negative); RSV PCR Negative (Negative)
[2021-06-15 08:04] LABS: COVID-19 PCR Positive (Negative)
== END 2021-06-15 08:42 | disposition home or self-care (01) ==
PROVIDERS: Student in an Organized Health Care Education/Training Program; Emergency Provider Physician Assistant; PCP Family Medicine
DX: U07.1 COVID-19 (principal); R50.9 Fever, unspecified; R51.9 Headache, unspecified; R06.02 Shortness of breath
CPT/HCPCS: 80048; 87637; 93005; 99283; 85025; 93010

== ENCOUNTER → 2021-12-23 09:42 | Outpatient (BNVA) | payer MEDICARE, SELFPAY | PROVIDERS: PCP Family Medicine; Referring Provider Family Medicine; Visit Provider Surgery | DX: Z12.11 Encounter for screening for malignant neoplasm of colon (principal); Z86.010 Personal history of colon polyps ==

== ENCOUNTER 2022-01-14 10:06 | Day surgery (SDC) | payer MEDICARE, SELFPAY ==
--- NOTE | 2022-01-13 22:07 | PDOC.DSDIS_ITS ---
Date of service: 01/14/22 Time of Service: 12:40 Discharge Plan Disposition Patient Disposition: HOME Condition: Good Discharge Details Reason For Visit: Colonoscopy Attending Provider: Saulo Anderson Primary Care Provider: IWONA CHILDERS Home Meds and New Rx's Prescriptions: Continued aspirin 325 mg tablet 650 mg PO DAILY Rx Instructions: takes 2 aspirin every other day, alternating with the acetaminophen-codeine ibuprofen 200 mg tablet 200 mg PO Q6H PRN cyclobenzaprine 5 mg tablet 5 mg PO TID PRN Biofreeze (menthol) 4 % gel 1 applic topical QD-BID PRN acetaminophen-codeine [Tylenol-Codeine #3] 300-30 mg Tablet 1 - 2 tab PO .Q4-6 PRN Discontinued bisacodyl [Dulcolax (bisacodyl)] 5 mg tablet,delayed release (DR/EC) 5 mg PO ONCE Qty: 4 0RF Rx Instructions: Take according to provider's instructions for colonoscopy prep. polyethylene glycol 3350 17 gram/dose powder 17 g PO ONCE Qty: 238 0RF Rx Instructions: To be taken as directed by prescriber's office for colonoscopy prep. Discharge Instructions Instructions: Diverticulosis (DC) Additional Instructions: 1. If tolerated, consume a soft, low fiber diet for 1-2 days. [address] Do not drive, drink alcohol, operate machinery, make critical decisions, or do activities that require coordination or balance for 24 hours. 3. Because air was put into your colon during the procedure, expelling air from your rectum (passing gas or farting) is normal. 4. You may not have a bowel movement for 1-3 days because of the colonoscopy prep. This is normal. 5. Go directly to the emergency room if you notice any of the following: Develop chills (warm to touch), or if you have a thermometer and your temperature is above 101 Difficulty breathing or difficultly swallowing Persistent vomiting Severe abdominal pain, other than gas cramps Severe chest pain Black, tarry stools Any bleeding ? exceeding one tablespoon 6. Call your physician if the site where your intravenous was started becomes red, swollen, painful, and warm to touch. 7. Your physician has reviewed your pre-procedure medications. Please continue to take those medications as previously ordered. You will be given specific information/education regarding any changes to your medications before leaving. Activity:: Activity as Tolerated Diet:: As Tolerated DS: Diagnosis Discharge Diagnosis (1) Diverticulosis large intestine w/o perforation or abscess w/o bleeding: Status: Acute Asessment and Plan: You had a normal colonoscopy today. Based on the results of your previous colonoscopy, combined with the negative test today, the recommendation is to fol low-up with another colonoscopy in 5 to 10 years.
--- NOTE | 2022-01-13 22:08 | W.COLOREPORT ---
Date of service: 01/14/22 Time of Service: 12:17 Colonoscopy Report Date of procedure: 01/14/22 Pre-op diagnosis general: screening colonoscopy Post-op diagnosis procedure note: other (Normal colonoscopy) Procedure: routine health maintenance screening colonoscopy Surgeon: Saulo Anderson Anesthesia Type: General:No Airway Estimated blood loss (mL): 0 Pathology: none sent Complications: None Disposition: same day Indications: Tyler is a 66-year-old man who underwent screening colonoscopy in the past. He was diagnosed with multiple with tubular adenomas 1 of which was greater than 15 mm. He is following up for his next colonoscopy. Prep: Miralax/Dulcolax Procedure Start Time: 11:54 Procedure End Time: 12:17 Retraction Time: 18 Findings: Normal colonoscopy Procedure Description: After the induction of monitored anesthetic care, and with the patient in left lateral decubitus position, I began by performing an external anorectal exam.? Perineum and skin were normal, as was the anal verge.? There was no evidence of external hemorrhoids.? Next, I performed a digital rectal exam.? I did not appreciate any abnormal findings.? Next, I advanced a colonoscope into the rectal vault.? I performed retroflexion.? There was very mild evidence of internal hemorrhoids.? Using insufflation, I then advanced the colonoscope beyond the rectal folds and into the sigmoid colon before advancing towards the cecum.? The quality of the prep was excellent.? The scope was noted to be in the cecum by identification of the ileocecal valve and appendiceal orifice.? I then began withdrawing the colonoscope using repeated irrigation as necessary for full evaluation of the colonic mucosa. ?Once the scope was withdrawn to the level of the rectum, great care was taken to examine portions of the rectal folds.? Based on the findings of the previous colonoscopy, I think particular attention to detail regarding the sites of the previous polypectomies. I did not see any evidence of regrowth, or new pathology in those areas. Finally, the scope was withdrawn and the patient was brought to the same-day surgery recovery unit as the anesthetic wore off. ?The findings and instructions were shared with the patient prior to discharge. I explained the findings Tyler, and although the colonoscopy is negative, based on the size of his previous tubular adenoma, I do recommend another follow-up colonoscopy in 5 years.
[2022-01-14 10:26] VITALS: BP 134/84; PULSE 83; RESP 16; TEMP 36.3; O2SAT 97
[2022-01-14] MEDS: Lactated Ringers 1,000 ML 80 ML IV (10:33)
--- NOTE | 2022-01-14 11:02 | W.ANESPRE ---
General Info Date of Service Date Performed: 01/14/22 Height: 6 ft Weight: 91.2 kg Body Mass Index (BMI): 27.2 Surgical Procedure: Operation Date: 01/14/22 11:05 Proposed Procedure Side Surgeon p Milad Anderson MD Meds Allergies and Home Medications Allergies Allergy/AdvReac Type Severity Reaction Status Date / Time No Known Allergies Allergy Unverified 01/14/22 10:38 Home Medication Medication Instructions Recorded acetaminophen 300 mg-codeine 30 mg 1 - 2 tab PO .Q4-6 PRN 06/08/18 tablet (Tylenol-Codeine #3) aspirin 325 mg tablet 650 mg PO DAILY 03/28/21 cyclobenzaprine 5 mg tablet 5 mg PO TID PRN 03/28/21 ibuprofen 200 mg tablet 200 mg PO Q6H PRN 03/28/21 menthol 4 % topical gel (Biofreeze 1 applic topical QD-BID PRN 03/28/21 (menthol)) Current Visit Medications: Current Medications Generic Name Dose Route Start Last Admin Trade Name Pablo PRN Reason Stop Dose Admin Ringer's Solution 1,000 mls @ 80 mls/hr 01/14/22 06:00 01/14/22 10:33 IV 02/12/22 23:59 80 mls/hr INFUSION OSCAR Administration IV Miscellaneous Supplies 1 each 01/14/22 06:00 Iv Access IV 02/12/22 23:59 DIRECTED OSCAR Sodium Chloride 0 ml 01/14/22 06:00 Normal Saline Flush 10 Ml Syr IV 02/12/22 23:59 PRN PRN Sodium Chloride 0 ml 01/14/22 06:00 Normal Saline 10 Ml Vial IJ 02/12/22 23:59 DIRECTED PRN Sterile Water 0 ml 01/14/22 06:00 Water,Injection,Sterile 10 Ml Vial IJ 02/12/22 23:59 DIRECTED PRN PFSH Active Problems Active Problems: Problem Status Onset Code COVID-19 U07.1 Diverticulosis large intestine w/o perforation or abscess w/o bleeding ~06/13/18 K57.30 Colorectal polyps ~06/13/18 K63.5 Encounter for screening colonoscopy Z12.11 Medical History Medical History Dyslipidemia Lumbosacral radiculopathy Tinnitus, bilateral URI (upper respiratory infection) Surgical History Surgical History H/O right knee surgery S/P colonoscopy (~06/13/18) Tobacco Smoking/Tobacco Use Status: Former Tobacco Use Alcohol Alcohol Intake: current Alcohol intake frequency: holidays/special occasions only Alcohol type: beer Substance Use Substance use: Occasionally Substance use type: marijuana Details: alcohol: t-7, marijuana: t-7, edibles Vital Signs and Lab Results Vital Signs Most Recent Vital Signs in EMR: Most Recent Vital Signs Temp Pulse Resp BP Pulse Ox 36.3 C L 83 16 134/84 97 01/14/22 10:26 01/14/22 10:26 01/14/22 10:26 01/14/22 10:26 01/14/22 10:26 Lab Results Blood Type / Crossmatch: No Data to Display Complete Blood Count: No Data to Display Complete Metabolic Panel: No Data to Display Liver Function Panel: No Data to Display Coagulation Panel: No Data to Display Cardiac Panel: No Data to Display Arterial Blood Gas: No Data to Display Venous Blood Gas: No Data to Display Pancreas Panel: No Data to Display Thyroid Panel: No Data to Display Infectious Disease: No Data to Display Blood Cultures: No Data to Display Toxicology Panel: No Data to Display Imaging and Studies Imaging and Studies Study information below may be from another EMR and interpreted by another provider. Please see original notes in EMR for more complete details. EKG Summary: 06/15/2021: Conclusion Sinus tachycardia...rate> 99 Incomplete left bundle branch block...QRSd>110mS, terminal axis(-90,-1) LVH with secondary repolarization abnormality...multi-LVH criteria, abnrm ST-T no significant change from prior Echocardiogram Summary: 09/09/2018: *STUDY CONCLUSIONS* Summary: 1. Left ventricle: The cavity size was normal. Wall thickness was normal. Systolic function was normal. The estimated ejection fraction was 55-60%. Wall motion was normal; there were no regional wall motion abnormalities. 2. Aortic valve: Mildly calcified annulus. Trileaflet; normal thickness leaflets. There was trivial regurgitation. 3. Ascending aorta: The ascending aorta was mildly dilated. 3.7 cm. 4. Mitral valve: There was mild regurgitation. 5. Right ventricle: The cavity size was normal. Wall thickness was normal. Systolic function was normal. 6. Pulmonary arteries: Pulmonary systolic pressure was increased, in the range of 35mm Hg to 40mm Hg. Anesthesia Assessment and Plan Anesthesia History Personal History: No History of Anesthesia Complications Family History: No Family History of Anesthesia Complications Exercise Tolerance Exercise Tolerance: Metabolic Equivalents>4 Pertinent Negatives Pertinent Negatives: No Symptoms of GERD, No Major Cardiovascular Symptoms or Complaints, No Major Pulmonary Symptoms or Complaints and No History of CVA/TIA Cardiac & Pulmonary Exam Cardiac Exam: Normal S1/S2 Heart Sounds Pulmonary Exam: Clear Bilateral Breath Sounds Implantable Cardiac Device Does patient have a Pacemaker or an ICD?: No Airway Exam Known Difficult Airway: No Mallampati Class: 4 Mouth Opening: Normal (> 3cm) Thyromental Distance: Greater than 3 cm Neck Range of Motion: Full ROM Neck Circumference: Normal Teeth Condition: Normal Dentition ASA Classification ASA Score: ASA 2 Emergency Case?: No NPO Status NPO Status: NPO Clears >2 hours, Solids >8 hours Anesthesia Plan Resuscitation Status: Full Code Anesthesia Technique: General Anesthesia Airway Planned: Natural Airway Monitors Used: Standard Monitors
[2022-01-14 11:40] VITALS: BMI 27.2
[2022-01-14 12:30] VITALS: BP 134/84; PULSE 83; RESP 16; TEMP 36.3; O2SAT 96
--- NOTE | 2022-01-14 12:32 | W.ANESPOSTOP ---
Postoperative Evaluation Date, Time and Location Date Performed: 01/14/22 Time Performed: 12:32 Patient Location: Day Surgery Unit Vital Signs Most Recent Imported Vital Signs: Most Recent Vital Signs Temp Pulse Resp BP Pulse Ox 36.3 C L 83 16 134/84 97 01/14/22 10:26 01/14/22 10:26 01/14/22 10:26 01/14/22 10:26 01/14/22 10:26 Most Recent Manually Entered Vital Signs: Adult Blood Pressure: 113/74 Heart Rate: 65 Respirations: 12 Oxygen Saturation (%): 96 Temperature (C): 36.3 C Pain Score (0-10 Scale): 0 Pain Score Most Recent Pain Score: Most Recent Pain Score Pain Level 0 01/14/22 10:26 Assessment Mental Status: Awake (Alert & Oriented to Patient Baseline) Airway and Respiratory Function: Patent airway with normal (patient baseline) respiratory exam Cardiovascular Function: Hemodynamically Stable Hydration Status: Adequately Hydrated Nausea & Vomiting: No Nausea or Vomiting Pain: Pt. Denies Any Pain Peripheral Nerve Block: Patient did not receive a nerve block
[2022-01-14 12:33] VITALS: BP 113/74; PULSE 65; RESP 12; TEMPC 36.3; O2SAT 96
[2022-01-14 13:00] VITALS: BP 134/86; PULSE 71; RESP 16; TEMP 36.6; O2SAT 96
== END 2022-01-14 13:17 | disposition home or self-care (01) ==
PROVIDERS: PCP Family Medicine; Visit Provider Surgery
PROC: 0DJD8ZZ Inspection of Lower Intestinal Tract, Via Natural or Artificial Opening Endoscopic (ICD-10-PCS; CPT 45378; principal; 2022-01-14 11:00)
DX: Z12.11 Encounter for screening for malignant neoplasm of colon (principal); K64.8 Other hemorrhoids; Z86.010 Personal history of colon polyps
CPT/HCPCS: G0105; J2704

== ENCOUNTER 2022-02-21 16:11 | Emergency (ER) | payer MEDICARE, SELFPAY ==
[2022-02-21 16:18] VITALS: BP 155/94; PULSE 84; RESP 18; TEMP 36.8; O2SAT 99
--- NOTE | 2022-02-21 16:30 | DI.RAD_ITS ---
Exam(s) XR KNEE RT 3V AP,LAT,LISS EXAM: XR KNEE RT 3V AP,LAT,LISS CLINICAL HISTORY: Worsening right knee pain. TECHNIQUE: 2D digital imaging was performed of the right knee. Three views obtained. AP, lateral an d PA tunnel views were obtained. COMPARISON: No exams were available for comparison FINDINGS: BONES: No acute fracture is present. No bony destructive lesion is seen. JOINTS: The knee is normally aligned. There may be a tiny joint effusion. SOFT TISSUE: Normal. IMPRESSION: Possible tiny joint effusion. DATA REPOSITORY: RADIATION DOSE DELIVERED:
--- NOTE | 2022-02-21 17:05 | DI.VRAD_ITS ---
PROCEDURE INFORMATION: Exam: XR Right Knee Exam date and time: 02/21/2022 4:40 PM Age: 66 years old Clinical indication: Patient HX: Worsening right knee pain TECHNIQUE: Imaging protocol: Radiologic exam of the Right knee. Views: 3 views. COMPARISON: No relevant prior studies available. FINDINGS: Bones/joints: There appears to be a trace joint effusion noted in the knee. Bony alignment is anatomic. Joint spaces appear well preserved. Soft tissues: Normal. IMPRESSION: Probable trace joint effusion. Dictated and Authenticated by: Amy Bhardwaj MD. Ordering:JOSE Handley MD
--- NOTE | 2022-02-21 17:20 | ED.GENADUL_ITS ---
Discharge Plan Disposition Patient Disposition: Home Condition: Stable Discharge Details Clinical Impression: Effusion of right knee joint Primary Care Provider: [facility] ED Provider: Emmanuelle Porras Home Meds and New Rx's Prescriptions: New diclofenac sodium 1 % gel 2 g topical QID PRN (Reason: pain) Qty: 100 0RF Rx Instructions: apply to knee up to 4 times daily as needed Continued aspirin 325 mg tablet 650 mg PO DAILY Rx Instructions: takes 2 aspirin every other day, alternating with the acetaminophen-codeine ibuprofen 200 mg tablet 200 mg PO Q6H PRN Biofreeze (menthol) 4 % gel 1 applic topical QD-BID PRN No Action cyclobenzaprine 5 mg tablet 5 mg PO TID PRN acetaminophen-codeine [Tylenol-Codeine #3] 300-30 mg Tablet 1 - 2 tab PO .Q4-6 PRN Discharge Instructions Instructions: Knee Sprain (ED), Hinged Knee Brace (ED) Additional Instructions: Rest, ice, compression, elevation. Use the hinged brace as needed for comfort. You may take it off at night or while at rest. Use the topical cream as directed. Continue to take Tylenol or ibuprofen. You are placed on a care management follow-up list for orthopedics. They should call you within a week to schedule an appointment. However if you do not hear from them you may give them a call as well. Please take Tylenol or Ibuprofen with food every 4-6 hours as needed for pain and swelling. Follow up with primary care provider in 3-5 days. Return to ED sooner if any worsening or concerns. Increase oral fluids. Referrals: Pawan Sanchez MD [ [facility] STAFF PHYSICIAN] - 2 weeks Discharge Data Discharge Date/Time-TO BE ENTERED AT DEPARTURE: 02/21/22 18:22 Medical Decision Making 66-year-old male complaining of right knee pain which has worsened over the last couple of days. He noticed been intermittent for couple of weeks. No known significant injury or twisting motion. He reports that he has been limping on it and it feels like it is going to lock up. Negative anterior posterior drawer test, he does have some pain with the valgus stress test. X-ray shows a small joint effusion. I do suspect possible MCL sprain or strain, I did discuss this with the patient and verbalized understanding. Patient placed in a hinged knee brace given crutches and placed on the care management list for Ortho follow-up. I did discuss this with the patient he verbalized understanding. Prescription was given for Diclofenac topical cream. Patient instructed to follow-up with orthopedics. He verbalized understanding. This text was generated using [employer] dictation system, please disregard any oddities of phrase or misspellings. Imaging Data Radiologic Study: Imaging: X-Ray Radiologist's impression: TECHNIQUE: Imaging protocol: Radiologic exam of the Right knee. Views: 3 views. COMPARISON: No relevant prior studies available. FINDINGS: Bones/joints: There appears to be a trace joint effusion noted in the knee. Bony alignment is anatomic. Joint spaces appear well preserved. Soft tissues: Normal. IMPRESSION: Probable trace joint effusion. Thank you for allowing us to participate in the care of your patient. Dictated and Authenticated by: Amy Bhardwaj MD [facility] General Mode of arrival: ambulatory . Date/Time Provider Initiated Documentation: 02/21/22 16:30 . Limitations to Documentation: no limitations . Information obtained by: patient, RN notes reviewed and old records reviewed . HPI Narrative: 66-year-old male presents to the ER with a chief complaint of right knee pain which has been worsening over the last week worse the last 2 days. He reports no known injury. He is complaining of medial joint pain. No significant erythema or swelling noted. No deformity. Distal CMS intact. Past medical history includes dyslipidemia, lumbosacral radiculopathy he has had right knee surgery in the past. He does state that it feels like his knee wants to lock up. Related Data Home Medications Medication Instructions Recorded Confirmed acetaminophen 300 mg-codeine 30 mg 1 - 2 tab PO .Q4-6 PRN 06/08/18 02/21/22 tablet (Tylenol-Codeine #3) aspirin 325 mg tablet 650 mg PO DAILY 03/28/21 02/21/22 cyclobenzaprine 5 mg tablet 5 mg PO TID PRN 03/28/21 02/21/22 ibuprofen 200 mg tablet 200 mg PO Q6H PRN 03/28/21 01/14/22 menthol 4 % topical gel (Biofreeze 1 applic topical QD-BID PRN 03/28/21 02/21/22 (menthol)) diclofenac sodium 1 % topical gel 2 g topical QID PRN pain #100 grams 02/21/22 Previous Rx's Medication Instructions Recorded diclofenac sodium 1 % topical gel 2 g topical QID PRN pain #100 grams 02/21/22 Allergies Allergy/AdvReac Type Severity Reaction Status Date / Time No Known Allergies Allergy Unverified 01/14/22 10:38 General Stated Complaint: Orthopedic JOSE JUAN: 4 Review of Systems Musculoskeletal Musculoskeletal: Reports as per HPI, Denies deformity, Reports arthralgias, Denies numbness and Reports stiffness Neurologic Neurologic: Denies numbness PFSH All Active Problems (Updated 02/21/22 @ 17:59 by Emmanuelle Porras NP) Effusion of right knee joint (Acute) COVID-19 (Acute) Diverticulosis large intestine w/o perforation or abscess w/o bleeding (Acute ~06/13/18) Colorectal polyps (Acute ~06/13/18) Encounter for screening colonoscopy (Acute) Medical History Dyslipidemia Lumbosacral radiculopathy Tinnitus, bilateral URI (upper respiratory infection) Surgical History H/O right knee surgery S/P colonoscopy (~06/13/18) Social History Smoking/Tobacco Use Status: Former Tobacco Use Quit Date: 02/09/88 Smoking risk assessment performed?: Yes Alcohol Intake: current Alcohol Intake frequency: holidays/special occasions only Alcohol type: beer Drug use: Occasionally Substance use type: marijuana Details: alcohol: t-7, marijuana: t-7, edibles Current gender identity: male Do you feel safe at home: Yes Do you feel safe in your relationship?: Yes Exam Const General: cooperative, healthy appearing, comfortable, well developed and well groomed Nutritional Appearance: average body habitus Orientation: alert, awake and oriented x3 Extrem Right lower extremity: knee Details: normal to inspection and tenderness (Negative anterior posterior drawer test, pain with valgus stress) Location: of the medial joint line Course Vital Signs Vital signs: Vital Signs Temperature 36.8 C 02/21/22 16:18 Pulse 84 02/21/22 16:18 Respiratory Rate 18 02/21/22 16:18 Blood Pressure 155/94 H 02/21/22 16:18 Pulse Oximetry 99 02/21/22 16:18 Temperature 36.8 C 02/21/22 16:18 Temperature Source Skin 02/21/22 16:18 Pulse 84 02/21/22 16:18 Respiratory Rate 18 02/21/22 16:18 Respiratory Effort 02/21/22 16:22 Blood Pressure 155/94 H 02/21/22 16:18 Blood Pressure Position Supine 02/21/22 16:18 Pulse Oximetry 99 02/21/22 16:18 Oxygen Delivery Method Room Air 02/21/22 16:18 Oxygen Flow Rate 0 02/21/22 16:18 Pain Level 10 02/21/22 16:18
--- NOTE | 2022-03-03 15:54 | NUR.NOTE ---
patient came back today approximately 9 days after being seen stating his hinged knee brace and crutches that were dispensed to him by us were too small. patient given ex-lg hinged knee brace and bariatric crutches.
== END 2022-02-21 18:22 | disposition home or self-care (01) ==
PROVIDERS: Emergency Provider Registered Nurse Emergency; PCP Family Medicine
DX: M25.461 Effusion, right knee (principal)
CPT/HCPCS: 29505; 73562; 99283

== ENCOUNTER → 2022-03-26 08:00 | Outpatient (BNVA) | payer MEDICARE, SELFPAY | PROVIDERS: PCP Family Medicine; Referring Provider Family Medicine; Visit Provider Student in an Organized Health Care Education/Training Program | DX: M23.91 Unspecified internal derangement of right knee (principal) | CPT/HCPCS: 99214 ==

== ENCOUNTER 2022-06-03 03:04 | Outpatient (CLI) | payer MEDICARE, SELFPAY ==
[2022-06-03 07:46] LABS: Abs Immature Grans 0.02 10^3/uL (0.0-0.06); Absolute Basophil Count 0.07 10^3/uL (0.0-0.2); Absolute Eosinophil Count 0.23 10^3/uL (0.0-0.7); Absolute Lymphocyte Count 1.73 10^3/uL (1.2-3.4); Absolute Monocyte Count 0.67 10^3/uL (0.1-0.8); Absolute Neutrophil Count 5.26 10^3/uL (1.2-6.7); Basophils % 0.9; Eosinophils % 2.9; HCT 43.6 % (40.0-50.0); Immature Grans % 0.3; Lymphocytes % 21.7; MCH 29.2 pg (27.0-33.0); MCHC 34.4 % (32.0-36.0); MCV 85 fL (80-95); MPV 9.9 fL (8.0-11.0); Monocytes % 8.4; Neutrophils % 65.8; Platelet Count 170 10^3/uL (130-400); RBC 5.13 10^6/uL (4.36-5.78); RDW 13.1 % (11.8-14.1); RDW-SD 40.5 fL; WBC 7.98 10^3/uL (4.4-10.8)
[2022-06-03 08:24] LABS: Hemoglobin A1C 5.6 % (<5.7)
[2022-06-03 08:32] LABS: ALT 25 U/L (16-63); AST 15 U/L (15-37); Albumin 4.1 g/dL (3.4-5.0); Alkaline Phosphatase 68 U/L (46-116); Anion Gap 3.9 mmol/L (3-11); BUN 13 mg/dL (7-18); Bilirubin, Total 0.7 mg/dL (0.2-1.0); CO2 33.1 mmol/L (21.0-32.0); CREATININE 1.2 mg/dL (0.70-1.30); Calcium 9.1 mg/dL (8.5-10.1); Chloride 106 mmol/L (98-107); Estimated GFR 67.11 (mL/min/1.73m2); Glucose 108 mg/dL (74-106); Potassium 3.9 mmol/L (3.5-5.1); Sodium 143 mmol/L (136-145); Total Protein 7.8 g/dL (6.4-8.2)
== END 2022-06-03 03:05 | disposition home or self-care (01) ==
PROVIDERS: PCP Family Medicine; Visit Provider Family Medicine
DX: M54.17 Radiculopathy, lumbosacral region (principal)
CPT/HCPCS: 36415; 80053; 83036; 85025

== ENCOUNTER 2023-02-04 11:39 | Emergency (ER) | payer MEDICARE, SELFPAY ==
[2023-02-04 11:44] VITALS: BP 172/88; PULSE 90; RESP 18; TEMP 37.4; O2SAT 98
--- NOTE | 2023-02-04 11:55 | ED.GENADUL_ITS ---
Discharge Plan Disposition Patient Disposition: Home Condition: Stable Discharge Details Clinical Impression: COVID-19 Primary Care Provider: [facility] ED Provider: Emmanuelle Porras Home Meds and New Rx's Prescriptions: New Paxlovid 300 mg (150 mg x 2)-100 mg tablets,dose pack See Rx Instructions .ROUTE .COMPLEX Qty: 30 0RF Rx Instructions: take TWO 150 mg tablets of nirmatrelvir with ONE 100 mg tablet of ritonavir twice daily for 5 days No Action aspirin 325 mg tablet 650 mg PO DAILY Rx Instructions: takes 2 aspirin every other day, alternating with the acetaminophen-codeine ibuprofen 200 mg tablet 200 mg PO Q6H PRN cyclobenzaprine 5 mg tablet 5 mg PO TID PRN Biofreeze (menthol) 4 % gel 1 applic topical QD-BID PRN acetaminophen-codeine [Tylenol-Codeine #3] 300-30 mg Tablet 1 - 2 tab PO .Q4-6 PRN Discharge Instructions Instructions: COVID-19 (Coronavirus Disease 2019) (ED) Additional Instructions: Please take the Paxlovid as directed and use the albuterol inhaler 1 or 2 puffs every 4-6 hours as needed for wheezing or shortness of breath. May take multivitamin which includes zinc and vitamin D. Increase your vitamin C consumption. Continue to wear a mask or quarantine for the next 5 to 10 days. You may consider getting a [id number] pulse oximeter to check your O2 saturation. Please return to the ER if it is less than 90% consistently for at least 5 to 10 minutes. Follow up with primary care provider in 5-10 days. Return to ED sooner if any worsening or concerns. Increase oral fluids. Stand Alone Forms: Work Release Referrals: [facility] [Primary Care Provider] - 2 weeks Discharge Data Discharge Date/Time-TO BE ENTERED AT DEPARTURE: 02/04/23 12:46 Medical Decision Making 67-year-old male presents to the ER with a chief complaint of bodyaches headache runny nose and testing positive for COVID this morning. Past medical history includes dyslipidemia, tinnitus URI lumbosacral radiculopathy. He is not taking any blood thinners or statins. He has taken Paxlovid in the past and he is requesting that at this time. Lungs are clear to auscultation bilaterally. No wheezes or rhonchi noted slightly diminished in the right lower lobe. BMP ordered for renal function. WN Albuterol inhaler ordered and will send Paxlovid to [facility] in [place]. Discussed strict return instructions, follow-up care and home care. Patient verbalized understanding. This text was generated using [employer] dictation system, please disregard any oddities of phrase or misspellings. Lab Data Lab results reviewed: Yes I reviewed the patient's lab results. Labs: Laboratory Tests Range/Units 02/04/23 12:05 Sodium (136-145) mmol/L 139 Potassium (3.5-5.1) mmol/L 3.7 Chloride (98-107) mmol/L 103 Carbon Dioxide (21.0-32.0) mmol/L 28.0 Anion Gap (3-11) mmol/L 8.0 BUN (7-18) mg/dL 13 Creatinine (0.70-1.30) mg/dL 1.0 Est GFR (CKD-EPI 2020) (mL/min/1.73m2) 83.01 Glucose (74-106) mg/dL 195 H Calcium (8.5-10.1) mg/dL 9.0 HPI General Mode of arrival: ambulatory . Date/Time Provider Initiated Documentation: 02/04/23 11:47 . Limitations to Documentation: no limitations . Information obtained by: patient, RN notes reviewed and old records reviewed . HPI Narrative: 67-year-old male presents to the ER with a chief complaint of bodyaches headache runny nose and testing positive for COVID this morning. Past medical history includes dyslipidemia, tinnitus URI lumbosacral radiculopathy. He is not taking any blood thinners or statins. He has taken Paxlovid in the past and he is requesting that at this time. Lungs are clear to auscultation bilaterally. No wheezes or rhonchi noted slightly diminished in the right lower lobe. Related Data Home Medications Medication Instructions Recorded Confirmed acetaminophen 300 mg-codeine 30 mg 1 - 2 tab PO .Q4-6 PRN 06/08/18 02/04/23 tablet (Tylenol-Codeine #3) aspirin 325 mg tablet 650 mg PO DAILY 03/28/21 02/04/23 cyclobenzaprine 5 mg tablet 5 mg PO TID PRN 03/28/21 02/04/23 ibuprofen 200 mg tablet 200 mg PO Q6H PRN 03/28/21 02/04/23 menthol 4 % topical gel (Biofreeze 1 applic topical QD-BID PRN 03/28/21 02/04/23 (menthol)) nirmatrelvir 300 mg (150 mg See Rx Instructions PO .COMPLEX 02/04/23 x2)-ritonavir 100 mg tablet,dose #30 dose pk pack (Paxlovid) Previous Rx's Medication Instructions Recorded nirmatrelvir 300 mg (150 mg See Rx Instructions PO .COMPLEX 02/04/23 x2)-ritonavir 100 mg tablet,dose #30 dose pk pack (Paxlovid) Allergies Allergy/AdvReac Type Severity Reaction Status Date / Time No Known Allergies Allergy Unverified 02/04/23 11:46 General Stated Complaint: GenMedical JOSE JUAN: 3 Review of Systems All systems reviewed & are unremarkable except as noted in HPI and below ENT Ears, Nose, Mouth, and Throat: Reports as per HPI Cardiovascular Cardiovascular: Denies chest pain Respiratory Respiratory: Reports chest congestion, Reports cough and Denies wheezing Allergic/Immunologic Allergic/Immunologic: Denies wheezing PFSH All Active Problems (Updated 02/04/23 @ 11:56 by Emmanuelle Porras NP) Internal derangement of right knee (Acute) COVID-19 (Acute) Diverticulosis large intestine w/o perforation or abscess w/o bleeding (Acute ~06/13/18) Colorectal polyps (Acute ~06/13/18) Encounter for screening colonoscopy (Acute) Medical History Dyslipidemia Lumbosacral radiculopathy Tinnitus, bilateral URI (upper respiratory infection) Surgical History H/O right knee surgery S/P colonoscopy (~06/13/18) Social History Smoking/Tobacco Use Status: Former Tobacco Use Quit Date: 02/09/88 Smoking risk assessment performed?: Yes Alcohol Intake: current Alcohol Intake frequency: holidays/special occasions only Alcohol type: beer Drug use: Occasionally Substance use type: marijuana Details: alcohol: t-7, marijuana: t-7, edibles Current gender identity: male Do you feel safe at home: Yes Do you feel safe in your relationship?: Yes Exam Narrative Exam Narrative: Constitutional: Alert and oriented x3. Appears stated age. Normal body habitus. Head: Normocephalic, no trauma. Eyes: Pupils PERRL, Red reflex noted, EOM's intact. Eyelids symmetrical without lesions, discharge, or swelling. ENT: Bilateral TM's WNL, External ear normal to inspection, no mastoid TTP, swelling, or erythema, Nasal turbinates boggy, no nasal discharge. Normal dentition, Posterior pharynx slightly erythemic, no exudate. Chest: RRR, Normal S1, S2, distal pulses intact. Resp: Lungs clear to auscultation bilaterally, no wheezes, rales, or rhonchi. Musculoskeletal: Normal gait, 5/5 strength to all four extremities. Skin: No suspicious rashes or lesions. Capillary refill less than 2 sec. Neurologic: Cranial nerves II-XII intact. Alert and oriented x 3. Motor: No deficits noted. Sensory: Hematologic/Lymphatic: No ecchymosis, no lymphadenopathy. Course Vital Signs Vital signs: Vital Signs Temperature 37.4 C 02/04/23 11:44 Pulse 90 02/04/23 11:44 Respiratory Rate 18 02/04/23 11:44 Blood Pressure 172/88 H 02/04/23 11:44 Pulse Oximetry 98 02/04/23 11:44 Temperature 37.4 C 02/04/23 11:44 Temperature Source Temporal Artery Scan 02/04/23 11:44 Pulse 90 02/04/23 11:44 Respiratory Rate 18 02/04/23 11:44 Respiratory Effort Normal, Non-Labored 02/04/23 11:47 Blood Pressure 172/88 H 02/04/23 11:44 Blood Pressure Position Sitting 02/04/23 11:44 Pulse Oximetry 98 02/04/23 11:44 Oxygen Delivery Method Room Air 02/04/23 11:44 Oxygen Flow Rate 0 02/04/23 11:44 PAWSS Have you Been Recently Intoxicated or Drunk Within the Last 30 days?: No Have you Ever Experienced Previous Episodes of Alcohol Withdrawal?: No Have you ever Experienced Withdrawal Seizures?: No Have you ever Experienced Delirium Tremens(DT)s?: No Have you ever undergone Alcohol Rehabilitation Treatment (i.e, inpt ot outpatient treatment programs)?: No Have you ever Experienced Blackouts?: No Have you ever Combined Alcohol with other Downers within the last 90 days?: No Have you ever Combined Alcohol with any other Substance of Abuse during the last 90 days?: No Positive Blood Alcohol level on Presentation? [PCS.BAL]: No Evidence of Increased Autonomic Activity (i.e. HR>120, tremor, sweating, agitation, nausea)?: No Result: 0
[2023-02-04] MEDS: Albuterol HFA 8 GM 60 PUFF INH IH (12:16)
[2023-02-04 12:26] LABS: BUN 13 mg/dL (7-18); Chloride 103 mmol/L (98-107); Estimated GFR 83.01 (mL/min/1.73m2); Glucose 195 mg/dL (74-106); Potassium 3.7 mmol/L (3.5-5.1); Sodium 139 mmol/L (136-145)
[2023-02-04 12:31] VITALS: BP 172/88; PULSE 90; RESP 18; RESP 20; TEMP 37.4; O2SAT 98
== END 2023-02-04 12:46 | disposition home or self-care (01) ==
PROVIDERS: Emergency Provider Registered Nurse Emergency; PCP Family Medicine
DX: U07.1 COVID-19 (principal); Z87.891 Personal history of nicotine dependence
CPT/HCPCS: 80048; 99283

== ENCOUNTER 2023-07-14 17:47 | Emergency (ER) | payer MEDICARE, SELFPAY ==
[2023-07-14 17:48] VITALS: BP 164/98; PULSE 77; RESP 15; TEMP 36.6; O2SAT 96
--- NOTE | 2023-07-14 17:49 | ED.GENADUL_ITS ---
Discharge Plan Disposition Patient Disposition: Home Condition: Good Discharge Details Clinical Impression: Puncture wound of toe of left foot Primary Care Provider: [facility] ED Provider: Yassine Kasper Meds and New Rx's Prescriptions: New levofloxacin 500 mg tablet 500 mg PO HS Qty: 4 0RF Continued aspirin 325 mg tablet 650 mg PO DAILY PRN Rx Instructions: takes 2 aspirin every other day, alternating with the acetaminophen-codeine ibuprofen 200 mg tablet 200 mg PO Q6H PRN cyclobenzaprine 5 mg tablet 5 mg PO TID PRN Biofreeze (menthol) 4 % gel 1 applic topical QD-BID PRN acetaminophen-codeine [Tylenol-Codeine #3] 300-30 mg Tablet 1 - 2 tab PO .Q4-6 PRN Discharge Instructions Instructions: Diphtheria/Acellular Pertussis/Tetanus Booster Vaccine (By injection), Puncture Wound (ED) Additional Instructions: You were seen for a puncture wound to your left great toe that resulted from a nail going through your boot. Your tetanus was updated today. You declined imaging to evaluate for potential foreign body. Because of the risk of infection due to puncture wounds occurring through footwear we will prophylactically cover you with antibiotic for 5 days with first dose being given here. Recommend Epsom salt soaks 2 or 3 times a day for the next couple of days. Watch the site for any signs of increasing pain, redness, swelling, drainage. Follow-up with PCP next week if needed. Return for problems especially signs of infection. HPI General Mode of arrival: ambulatory . Date/Time Provider Initiated Documentation: 07/14/23 17:49 . Limitations to Documentation: no limitations . Information obtained by: patient and RN notes reviewed . HPI Narrative: Patient presents to ED with puncture wound to his left great toe. Patient was doing yard work. He had hiking boot type footwear on. He stepped on a bishop nail that was in a piece of wood. He is now having increasing pain in that toe. Injury occurred hours ago. He thinks his tetanus has been more than 5 years. He denies diabetes. Denies other injury or complaint. Related Data Home Medications Medication Instructions Recorded Confirmed acetaminophen 300 mg-codeine 30 mg 1 - 2 tab PO .Q4-6 PRN 06/08/18 07/14/23 tablet (Tylenol-Codeine #3) aspirin 325 mg tablet 650 mg PO DAILY PRN 03/28/21 07/14/23 cyclobenzaprine 5 mg tablet 5 mg PO TID PRN 03/28/21 07/14/23 ibuprofen 200 mg tablet 200 mg PO Q6H PRN 03/28/21 07/14/23 menthol 4 % topical gel (Biofreeze 1 applic topical QD-BID PRN 03/28/21 07/14/23 (menthol)) levofloxacin 500 mg tablet 500 mg PO HS #4 tabs 07/14/23 Previous Rx's Medication Instructions Recorded levofloxacin 500 mg tablet 500 mg PO HS #4 tabs 07/14/23 Allergies Allergy/AdvReac Type Severity Reaction Status Date / Time No Known Allergies Allergy Unverified 07/14/23 17:52 General JOSE JUAN: 3 Review of Systems Narrative: Per HPI Exam Narrative Exam Narrative: Const: WDWN male in NAD. VS per triage. HEENT: NC/AT. Normal facial exam. Neck: Supple. Trachea midline. Lungs: Normal respiratory effort. Neuro: A+O x 3. Normal speech, mentation, gait. Cranial nerves II - XII grossly intact. No gross motor or sensory deficit. Ext: No C/C/E. Skin: Puncture wound to the pad of the left great toe. No active bleeding. Tenderness to the pad. No overt redness swelling. Medical Decision Making Patient presenting to ED with puncture wound to the left great toe pad resulting from bsihop nail going through the sole of this foot into the toe. He feels his tetanus is definitely more than 5 years and would like it updated. Discussed possibility of foreign body and imaging. He declines x-ray at this time. Also discussed antibiotic prophylaxis given that this is a puncture wound to the sole of footwear with increase risk. He is not diabetic. He does not have any significant past medical history. He has no allergies. He would like antibiotic prophylaxis, as such we will do 5 days of Levaquin to cover for potential Pseudomonas as well as staph. Follow-up with PCP as needed. Return precautions provided, specifically signs of infection. PFSH All Active Problems Tinnitus, bilateral (Acute) Puncture wound of toe of left foot (Acute) Internal derangement of right knee (Acute) Diverticulosis large intestine w/o perforation or abscess w/o bleeding (Acute ~06/13/18) Colorectal polyps (Acute ~06/13/18) Encounter for screening colonoscopy (Acute) Medical History Dyslipidemia Lumbosacral radiculopathy Surgical History H/O right knee surgery S/P colonoscopy (~06/13/18) Social History Smoking/Tobacco Use Status: Former Tobacco Use Quit Date: 02/09/88 Smoking risk assessment performed?: Yes Alcohol Intake: current Alcohol Intake frequency: holidays/special occasions only Alcohol type: beer Drug use: Occasionally Substance use type: marijuana Details: alcohol: t-7, marijuana: t-7, edibles Current gender identity: male Do you feel safe at home: Yes Do you feel safe in your relationship?: Yes
[2023-07-14] MEDS: levoFLOXacin 500 MG TAB PO (18:15)
--- NOTE | 2023-07-14 18:31 | NUR.NOTE ---
soaked L foot in saline for 15 min.pt anxious to leave.Nursing Note:
== END 2023-07-14 18:33 | disposition home or self-care (01) ==
LOC: ER 18:34
PROVIDERS: Emergency Provider Emergency Medicine; PCP Family Medicine
DX: S91.132A Puncture wound without foreign body of left great toe without damage to nail, initial encounter (principal); Z87.891 Personal history of nicotine dependence; Z23 Encounter for immunization; W45.0XXA Nail entering through skin, initial encounter; Y93.H2 Activity, gardening and landscaping; Y92.017 Garden or yard in single-family (private) house as the place of occurrence of the external cause
CPT/HCPCS: 90471; 90715; 99283

== ENCOUNTER 2023-09-17 00:17 | Outpatient (CLI) | payer MEDICARE, SELFPAY ==
--- NOTE | 2023-09-17 | DI.RAD_ITS ---
Exam(s) XR LUMBAR SPINE COMPLETE EXAM: XR LUMBAR SPINE COMPLETE CLINICAL HISTORY: LBP, M54.50. TECHNIQUE: 2D digital imaging was performed. Five views. COMPARISON: No exams were available for comparison FINDINGS: BONES: No fracture or destructive lesion. Vertebral body heights are maintained. Small endplate oste ophytes . [place] facet hypertrophy identified, greater at the lower lumbar levels. DISKS: Intervertebral disc spaces are maintained. Mild degenerative changes of the SI joints. ALIGNMENT: Lumbar spinal alignment is within normal limits. SOFT TISSUE: Normal. IMPRESSION: Mild degenerative changes. DATA REPOSITORY: RADIATION DOSE DELIVERED:
--- NOTE | 2023-09-17 | DI.RAD_ITS ---
Exam(s) XR KNEE RT 3V AP,LAT,LISS XR KNEE LT 3V AP,LAT,LISS EXAM: XR KNEE RT 3V AP,LAT,LISS CLINICAL HISTORY: RT KNEE PAIN, M25.561. TECHNIQUE: 2D digital imaging was performed. Three views of both knees. COMPARISON: CR XR KNEE LT 3V AP,LAT,LISS from 09/17/2023 FINDINGS: BONES: No acute fracture is present. No bony destructive lesion is seen. JOINTS: The knee is normally aligned. No joint effusion is seen. Joint spaces are maintained. No s ignificant degenerative changes SOFT TISSUE: Normal. Ovoid bony density seen medial to the right femoral condyle could be related t o remote trauma. IMPRESSION: Unremarkable radiographs of both knees. DATA REPOSITORY: RADIATION DOSE DELIVERED:
--- NOTE | 2023-09-17 | DI.RAD_ITS ---
Exam(s) XR WRIST LT COMPLETE EXAM: XR WRIST LT COMPLETE CLINICAL HISTORY: PAIN IN LT WRIST, M25.532. TECHNIQUE: 2D digital imaging was performed. Three views. COMPARISON: No exams were available for comparison FINDINGS: BONES: No acute fracture is present. No bony destructive lesion is seen. Small degenerative cysts n oted in the lunate JOINTS: The carpal bones are normally aligned. Mild degenerative changes, greatest at the 1st carpa l metacarpal joint, with mild periarticular spurring. Joint spaces are maintained. SOFT TISSUE: Normal. IMPRESSION: Mild degenerative changes. DATA REPOSITORY: RADIATION DOSE DELIVERED:
== END 2023-09-17 00:37 ==
LOC: DI 00:17
PROVIDERS: PCP Family Medicine; Visit Provider Family Medicine
DX: Z13.6 Encounter for screening for cardiovascular disorders (principal)
CPT/HCPCS: 73562; 72110; 73110

== ENCOUNTER 2023-09-20 02:36 | Outpatient (CLI) | payer MEDICARE, SELFPAY ==
--- NOTE | 2023-09-20 | DI.US_ITS ---
Exam(s) US AAA SCREENING EXAM: US AAA SCREENING CLINICAL HISTORY: ENCOUNTER FOR SCREENING FOR CARDIOVASULAR DISORDERS, Z13.6 COMPARISON: None FINDINGS: There is no evidence of significant abdominal aortic aneurysm. Maximum diameter measurement of the a bdominal aorta is 2.9 cm proximally and the aorta tapers normally. There is, however, mild arterialmegaly of the visualized common iliac arteries. Maximum diameter of right common iliac artery is 1.6 cm and left common iliac artery 1.5 cm. IMPRESSION: No evidence of abdominal significant aortic aneurysm. 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
== END 2023-09-20 02:56 ==
LOC: DI 02:37
PROVIDERS: PCP Family Medicine; Visit Provider Family Medicine
DX: Z13.6 Encounter for screening for cardiovascular disorders (principal)
CPT/HCPCS: 76706

== ENCOUNTER 2023-10-17 16:33 | Emergency (ER) | payer MEDICARE, SELFPAY ==
[2023-10-17 16:41] VITALS: BP 165/80; PULSE 82; RESP 16; TEMP 36.8; O2SAT 97
[2023-10-17] MEDS: Prochlorperazine 10 MG TAB PO (17:29)
[2023-10-17] MEDS: Acetaminophen 500 MG TAB 1000 MG PO (17:29)
[2023-10-17] MEDS: Magnesium Oxide 400 MG TAB PO (17:29)
--- NOTE | 2023-10-17 18:45 | ED.GENADUL_ITS ---
Discharge Plan Disposition Patient Disposition: Eloped Condition: Stable Discharge Details Chief Complaint: Headache Clinical Impression: Headache Primary Care Provider: [facility] ED Provider: Connie Brantley Home Meds and New Rx's Prescriptions: No Action aspirin 325 mg tablet 650 mg PO DAILY PRN Rx Instructions: takes 2 aspirin every other day, alternating with the acetaminophen-codeine ibuprofen 200 mg tablet 200 mg PO Q6H PRN cyclobenzaprine 5 mg tablet 5 mg PO TID PRN acetaminophen-codeine [Tylenol-Codeine #3] 300-30 mg Tablet 1 - 2 tab PO .Q4-6 PRN glucosamine-chondroitin [Osteo Bi-Flex] 250-200 mg tablet 2 tab PO ONCE Rx Instructions: give after food/meal Discharge Data Discharge Date/Time-TO BE ENTERED AT DEPARTURE: 10/17/23 17:54 HPI General Date/Time Provider Initiated Documentation: 10/17/23 16:43 . Limitations to Documentation: no limitations . Information obtained by: patient . HPI Narrative: 68-year-old gentleman without significant past medical history presents with right-sided headache. He reports that he was enjoying a snack in conversation with his family when he started having a very mild stabbing pain on the right side of his skull. He would feel 1 small twinge of pain and it would go away and then it would come back and this has happened several times any comes into the ER today to get evaluated. He states that he does not have a history of headaches. Denies any trauma. Denies any speech change, weakness, numbness or tingling. Denies significant pain and reports that it has resolved actually at this time. Not acute onset, pain is localized to the right posterior parietal scalp it is a stabbing feeling has not tried any medication for relief prior to presenting. Related Data Home Medications ?Medication ?Instructions ?Recorded ?Confirmed acetaminophen 300 mg-codeine 30 mg 1 - 2 tab PO .Q4-6 PRN 06/08/18 10/17/23 tablet (Tylenol-Codeine #3) aspirin 325 mg tablet 650 mg PO DAILY PRN 03/28/21 10/17/23 cyclobenzaprine 5 mg tablet 5 mg PO TID PRN 03/28/21 10/17/23 ibuprofen 200 mg tablet 200 mg PO Q6H PRN 03/28/21 10/17/23 glucosamine-chondroitin 250 mg-200 2 tab PO ONCE 10/17/23 10/17/23 mg tablet (Osteo Bi-Flex) Allergies Allergy/AdvReac Type Severity Reaction Status Date / Time No Known Allergies Allergy Verified 10/17/23 16:44 General Stated Complaint: Headache JOSE JUAN: 3 Exam Narrative Exam Narrative: Review of Systems: All systems reviewed & are unremarkable except as noted in HPI and below Well-developed, no acute distress NCAT no scalp tenderness or skin changes appreciated, no temporal tenderness PERRL, normal conjunctiva RRR Unlabored respiratory effort no focal neurologic deficits, cranial nerves intact, no dysmetria, normal gait, negative Romberg Course Vital Signs Vital signs: Vital Signs Temperature 36.8 C 10/17/23 16:41 Pulse 82 10/17/23 16:41 Respiratory Rate 16 10/17/23 16:41 Blood Pressure 165/80 H 10/17/23 16:41 Pulse Oximetry 97 10/17/23 16:41 Temperature 36.8 C 10/17/23 16:41 Pulse 82 10/17/23 16:41 Respiratory Rate 16 10/17/23 16:41 Respiratory Effort Normal, Non-Labored 10/17/23 17:43 Blood Pressure 165/80 H 10/17/23 16:41 Pulse Oximetry 97 10/17/23 16:41 Pain Level 9 10/17/23 16:41 Medical Decision Making Emergent evaluation of headache. Patient does not have history or physical exam findings that have any concerning red flags. He has not tried any oral medication for symptom relief and the symptoms have not been going on for that long. He has no acute neurologic findings. No significant severity, no acute onset to make me think that there might be subarachnoid hemorrhage or other intracranial process. Will give oral medications and reassess. Given his findings at this time, I do not feel imaging is indicated. After medication was administered, the patient reported to the nurse that he would like to leave. I was unavailable to discuss an AMA with the patient, but he did sign paperwork with the nurse. He was calm from the department when I became available and however was not able to reassess him prior to his departure. Quality:SDOH Health Related Social Needs: No Data to Display PFSH All Active Problems (Updated 10/17/23 @ 19:46 by Connie Brantley MD) Headache (Acute) Tinnitus, bilateral (Acute) Internal derangement of right knee (Acute) Diverticulosis large intestine w/o perforation or abscess w/o bleeding (Acute ~06/13/18) Colorectal polyps (Acute ~06/13/18) Encounter for screening colonoscopy (Acute) Medical History Dyslipidemia Lumbosacral radiculopathy Surgical History H/O right knee surgery S/P colonoscopy (~06/13/18) Social History Smoking/Tobacco Use Status: Former Tobacco Use Quit Date: 02/09/88 Smoking risk assessment performed?: Yes Alcohol Intake: current Alcohol Intake frequency: holidays/special occasions only Alcohol type: beer Drug use: Occasionally Substance use type: marijuana Details: alcohol: t-7, marijuana: t-7, edibles Current gender identity: male Do you feel safe at home: Yes Do you feel safe in your relationship?: Yes
== END 2023-10-17 17:54 | disposition left against medical advice (07) ==
LOC: ER 17:02
PROVIDERS: Emergency Provider Emergency Medicine; PCP Family Medicine
DX: R51.9 Headache, unspecified (principal); Z79.82 Long term (current) use of aspirin; Z87.891 Personal history of nicotine dependence; Z53.29 Procedure and treatment not carried out because of patient's decision for other reasons
CPT/HCPCS: 99283

== ENCOUNTER 2024-03-29 12:25 | Emergency (ER) | payer MEDICARE, SELFPAY ==
[2024-03-29 12:43] VITALS: BP 166/108; PULSE 107; RESP 20; TEMP 38.8; O2SAT 94
[2024-03-29 13:16] VITALS: BP 166/108; PULSE 107; RESP 20; TEMP 38.8; O2SAT 94
[2024-03-29] MEDS: Ondansetron O.D.T. 4 MG TABEF PO (13:38)
[2024-03-29] MEDS: Acetaminophen 325 MG TAB 650 MG PO (13:39)
[2024-03-29] MEDS: Ketorolac 15 MG/ML VIAL IM (13:39)
[2024-03-29] MEDS: Dexamethasone 10 MG/ML VIAL PO (13:39)
[2024-03-29 14:34] VITALS: BP 105/63; PULSE 98; RESP 16; O2SAT 95
--- NOTE | 2024-03-31 09:07 | ED.GENADUL_ITS ---
Discharge Plan Disposition Patient Disposition: Home Condition: Stable Discharge Details Clinical Impression: Influenza A Primary Care Provider: [facility] ED Provider: Martine Swan Home Meds and New Rx's Prescriptions: New ondansetron 4 mg tablet,disintegrating 4 mg PO DAILY 5 Days Qty: 5 0RF Continued aspirin 325 mg tablet 650 mg PO DAILY PRN Rx Instructions: takes 2 aspirin every other day, alternating with the acetaminophen-codeine ibuprofen 200 mg tablet 200 mg PO Q6H PRN cyclobenzaprine 5 mg tablet 5 mg PO TID PRN acetaminophen-codeine [Tylenol-Codeine #3] 300-30 mg Tablet 1 - 2 tab PO .Q4-6 PRN glucosamine-chondroitin [Osteo Bi-Flex] 250-200 mg tablet 2 tab PO ONCE Rx Instructions: give after food/meal Discharge Instructions Instructions: Flu, Adult ED Additional Instructions: take motrin and tylenol for pain and fever control regular fluids take zofran as needed for nausea and vomiting please return earlier should you have new or worsening complaints Referrals: [facility] [Primary Care Provider] - 1 day Discharge Data Discharge Date/Time-TO BE ENTERED AT DEPARTURE: 03/29/24 14:35 HPI General Date/Time Provider Initiated Documentation: 03/29/24 12:48 . HPI Narrative: The patient is a 68-year-old male with a history of diverticulosis, presenting with flu-like symptoms for the past 4 days. He reports a headache. He has not taken any antipyretics or nausea medications today. His partner is sick with similar symptoms. He is alert and oriented, in no acute distress, with pupils equal, round, and reactive to light and accommodation. He is ambulatory with a steady gait. His lungs are clear to auscultation, and there is no peripheral edema. Oxygenation is at 95 percent, and he is in no respiratory distress. There is no indication for an x-ray. He states his symptoms are not worse but not significantly improved. He is not a candidate for Tamiflu as he has had symptoms for several days, exceeding the 72- hour window for initiation. Related Data Home Medications ?Medication ?Instructions ?Recorded ?Confirmed acetaminophen 300 mg-codeine 30 mg 1 - 2 tab PO .Q4-6 PRN 06/08/18 03/29/24 tablet (Tylenol-Codeine #3) aspirin 325 mg tablet 650 mg PO DAILY PRN 03/28/21 03/29/24 cyclobenzaprine 5 mg tablet 5 mg PO TID PRN 03/28/21 03/29/24 ibuprofen 200 mg tablet 200 mg PO Q6H PRN 03/28/21 03/29/24 glucosamine-chondroitin 250 mg-200 2 tab PO ONCE 10/17/23 03/29/24 mg tablet (Osteo Bi-Flex) ondansetron 4 mg disintegrating 4 mg PO DAILY 5 days #5 tabs 03/29/24 tablet Previous Rx's ?Medication ?Instructions ?Recorded ondansetron 4 mg disintegrating 4 mg PO DAILY 5 days #5 tabs 03/29/24 tablet Allergies Allergy/AdvReac Type Severity Reaction Status Date / Time No Known Allergies Allergy Verified 03/29/24 12:47 General Stated Complaint: RespSymp JOSE JUAN: 4 Exam Narrative Exam Narrative: General Appearance: Patient is alert and oriented, in no acute distress. Vital signs: Oxygenation is at 95 percent. HEENT: Pupils are equal, round, and reactive to light and accommodation. Respiratory: Lungs are clear to auscultation. Cardiovascular: Sinus tachycardia is present. Back, Musculoskeletal: Patient is ambulatory with a steady gait. Extremities: There is no peripheral edema. Skin: Warm and dry, no rash. Neurological: Normal. Course Vital Signs Vital signs: Vital Signs Temperature 38.8 C H 03/29/24 12:43 Pulse 107 H 03/29/24 12:43 Respiratory Rate 20 03/29/24 12:43 Blood Pressure 166/108 H 03/29/24 12:43 Pulse Oximetry 94 03/29/24 12:43 Temperature 38.8 C H 03/29/24 13:16 Pulse 98 H 03/29/24 14:34 Respiratory Rate 16 03/29/24 14:34 Respiratory Effort Normal, Non-Labored 03/29/24 14:34 Respiratory Depth Normal 03/29/24 14:34 Blood Pressure 105/63 03/29/24 14:34 Pulse Oximetry 95 03/29/24 14:34 Oxygen Delivery Method Room Air 03/29/24 13:16 Pain Level 6 03/29/24 13:16 Medical Decision Making Laboratory Studies Positive for influenza A. Initial Assessment: 68-year-old male with a history of diverticulosis presents with flu-like symptoms for the past 4 days, including cough, vomiting, and headache. Tested positive for influenza A. ED Course: - Flu test ordered and returned positive for influenza A. - Oxygenation at 95%, no respiratory distress, no indication for x-ray. - Provided supportive care with antiemetics and antipyretics. - Not a candidate for Tamiflu due to symptom duration exceeding 72-hour window for initiation. - Encouraged to follow up with PCP for new or worsening complaints. - Return precautions reviewed and patient expressed understanding. Final Assessment: Patient with influenza A, managed with supportive care. No indication for x-ray. Not eligible for Tamiflu. Advised to follow up with PCP and continue supportive care at home. Clinical Impression: - Influenza A Disposition: - Follow-Up: Follow up with primary care physician for new or worsening complaints. MDM Components Evaluation: - Number of Differential Diagnoses or Management Options: Influenza A - Amount and Complexity of Data Reviewed: Flu test results - Risk of Complication and Morbidity or Mortality: Low risk given current oxygenation and lack of respiratory distress. Quality:SDOH Health Related Social Needs: No Data to Display PFSH All Active Problems (Updated 03/29/24 @ 14:24 by SANTA Todd) Influenza A (Acute) Tinnitus, bilateral (Acute) Internal derangement of right knee (Acute) Diverticulosis large intestine w/o perforation or abscess w/o bleeding (Acute ~06/13/18) Colorectal polyps (Acute ~06/13/18) Encounter for screening colonoscopy (Acute) Medical History Dyslipidemia Lumbosacral radiculopathy Surgical History H/O right knee surgery S/P colonoscopy (~06/13/18) Social History Smoking/Tobacco Use Status: Former Tobacco Use Quit Date: 02/09/88 Smoking risk assessment performed?: Yes Alcohol Intake: current Alcohol Intake frequency: holidays/special occasions only Alcohol type: beer Drug use: Occasionally Substance use type: marijuana Details: alcohol: t-7, marijuana: t-7, edibles Housing: house Current gender identity: male Do you feel safe at home: Yes Do you feel safe in your relationship?: Yes
== END 2024-03-29 14:35 | disposition home or self-care (01) ==
PROVIDERS: Emergency Provider Physician Assistant; PCP Family Medicine
DX: J10.1 Influenza due to other identified influenza virus with other respiratory manifestations (principal); Z79.01 Long term (current) use of anticoagulants; Z87.891 Personal history of nicotine dependence
CPT/HCPCS: 87426; 96372; 99284; 99283; J1100; J1885

== ENCOUNTER 2024-03-31 16:56 | Emergency (ER) | payer MEDICARE, SELFPAY ==
[2024-03-31 16:58] VITALS: BP 117/77; PULSE 93; RESP 16; TEMP 36.8; O2SAT 96
--- NOTE | 2024-03-31 17:00 | DI.RAD_ITS ---
Exam(s) XR CHEST 2V PA LATERAL EXAM: XR CHEST 2V PA LATERAL CLINICAL HISTORY: cough. TECHNIQUE: 2D digital imaging was performed. COMPARISON: No exams were available for comparison FINDINGS: 2 views: Heart size is normal. The mediastinum is not widened. Small calcified granuloma in the right upper lobe There are no confluent infiltrates nor pleural effusions. No pulmonary edema. No fractures. No pne umothorax. IMPRESSION: No acute pulmonary findings. DATA REPOSITORY: RADIATION DOSE DELIVERED:
--- NOTE | 2024-03-31 17:09 | ED.GENADUL_ITS ---
Discharge Plan Disposition Patient Disposition: Home Condition: Stable Discharge Details Clinical Impression: Influenza A Primary Care Provider: [facility] ED Provider: Shahzad Levy Home Meds and New Rx's Prescriptions: New guaifenesin 1,200 mg tablet extended release 12hr 1,200 mg PO BID Qty: 14 0RF Continued aspirin 325 mg tablet 650 mg PO DAILY PRN Rx Instructions: takes 2 aspirin every other day, alternating with the acetaminophen-codeine ibuprofen 200 mg tablet 200 mg PO Q6H PRN cyclobenzaprine 5 mg tablet 5 mg PO TID PRN acetaminophen-codeine [Tylenol-Codeine #3] 300-30 mg Tablet 1 - 2 tab PO .Q4-6 PRN glucosamine-chondroitin [Osteo Bi-Flex] 250-200 mg tablet 2 tab PO ONCE Rx Instructions: give after food/meal Discharge Instructions Instructions: Guaifenesin, Flu, Adult ED Additional Instructions: You were seen in the emergency department for your influenza illness, your vitals are completely stable, you have no evidence of low oxygen readings, you can obtain an casa-cuj-mureemp oxygen monitor at any pharmacy. You state you are not taking any ghvq-sll-lwnpmmt cold medicines, this will make you feel much better in dealing with your symptoms. Use tea with honey for throat irritation, use cough medicine like Mucinex to encourage decongestion and getting moisture out of your lungs. Use regular doses of Tylenol and ibuprofen, use Tylenol and ibuprofen at regular intervals for 4 to 5 days before stopping medications to reevaluate your symptoms. Please return for profound shortness of breath, chest pain, dizziness or near fainting or any other emergent concerns. Referrals: [facility] [Primary Care Provider] - Discharge Data Discharge Date/Time-TO BE ENTERED AT DEPARTURE: 03/31/24 17:46 HPI General Date/Time Provider Initiated Documentation: 03/31/24 17:07 . HPI Narrative: 68 year-old male presents to ED today by POV/ambulating with a chief complaint of diagnosis of influenza here 2 days ago, states his cough is worse especially when laying down. Quality described as cough, mild shortness of breath, nasal congestion, no radiation to respiratory distress, high fever, profound lethargy, chest pain, nausea/vomiting. Severity is described as mild. Palliating factors include nothing attempted- is not taking any symptomatic OTC cold medicines at all. Provoking factors include nothing specific. Patient not anticoagulated. Related Data Home Medications ?Medication ?Instructions ?Recorded ?Confirmed acetaminophen 300 mg-codeine 30 mg 1 - 2 tab PO .Q4-6 PRN 06/08/18 03/31/24 tablet (Tylenol-Codeine #3) aspirin 325 mg tablet 650 mg PO DAILY PRN 03/28/21 03/31/24 cyclobenzaprine 5 mg tablet 5 mg PO TID PRN 03/28/21 03/31/24 ibuprofen 200 mg tablet 200 mg PO Q6H PRN 03/28/21 03/31/24 glucosamine-chondroitin 250 mg-200 2 tab PO ONCE 10/17/23 03/31/24 mg tablet (Osteo Bi-Flex) guaifenesin 1,200 mg tablet, 1,200 mg PO BID #14 tabs 03/31/24 extended release 12 hr Previous Rx's ?Medication ?Instructions ?Recorded guaifenesin 1,200 mg tablet, 1,200 mg PO BID #14 tabs 03/31/24 extended release 12 hr Allergies Allergy/AdvReac Type Severity Reaction Status Date / Time No Known Allergies Allergy Verified 03/31/24 17:04 General Stated Complaint: GenMedical JOSE JUAN: 3 Review of Systems All systems reviewed & are unremarkable except as noted in HPI and below Exam Narrative Exam Narrative: GENERAL APPEARANCE: Well-nourished, non-toxic, awake and alert, atraumatic, no acute distress. SKIN: Warm, pink, dry, intact, without rashes/lesions/ulcerations. HEAD: Normocephalic, atraumatic, normal hair distribution for gender/age. EYES: Normal conjunctiva, no exudates on lids/lashes. ENT: Nares patent, no circumoral cyanosis, no facial swelling NECK: Supple, trachea midline, painless cervical ROM. LUNGS/CHEST: Lungs CTA bilaterally- no rhonchi/rales/wheezes diffusely, non- labored respirations, normal A/P diameter, symmetrical expansion, no chest wall deformity HEART (CV/PV): Regular rate and rhythm without murmur, no peripheral edema, no JVD. ABDOMEN: Soft, non-distended, no guarding, no tenderness. MSK: Normal ROM, no swelling/deformity to bilateral UEs or LEs, moving all extremities without weakness, no cyanosis, spine midline without tenderness, normal curvature. NEURO: Mental Status AAOx4 - alert to person, place, time, events No facial droop, no forehead involvement. Motor: No focal weakness - strength 5/5 in bilateral UEs and LEs, proximal and distal, symmetric. Sensory: sensation intact to light touch globally. Gait normal: patient ambulated without ataxia into ED room. PSYCH: euthymic, cooperative, pleasant, appropriate speech Course Vital Signs Vital signs: Vital Signs Temperature 36.8 C 03/31/24 16:58 Pulse 93 H 03/31/24 16:58 Respiratory Rate 16 03/31/24 16:58 Blood Pressure 117/77 03/31/24 16:58 Pulse Oximetry 96 03/31/24 16:58 Temperature 36.8 C 03/31/24 16:58 Temperature Source Oral 03/31/24 16:58 Pulse 93 H 03/31/24 16:58 Respiratory Rate 16 03/31/24 16:58 Blood Pressure 117/77 03/31/24 16:58 Blood Pressure Position Sitting 03/31/24 16:58 Pulse Oximetry 96 03/31/24 16:58 Oxygen Delivery Method Room Air 03/31/24 16:58 Oxygen Flow Rate 0 03/31/24 16:58 Pain Level 0 03/31/24 16:58 Medical Decision Making This dictation utilizes [id number] dictation software and may contain unedited grammatical errors. 68 year-old male presents to ED today by POV/ambulating with a chief complaint of diagnosis of influenza here 2 days ago, states his cough is worse especially when laying down. Quality described as cough, mild shortness of breath, nasal congestion, no radiation to respiratory distress, high fever, profound lethargy, chest pain, nausea/vomiting. Severity is described as mild. Palliating factors include nothing attempted- is not taking any symptomatic OTC cold medicines at all. Provoking factors include nothing specific. Patients' medical history: Noncontributory. Family and social history: Noncontributory. Pertinent exam findings / vital signs include lungs CTA, nontoxic vitals, no respiratory distress. Differential / pathologies of concern include influenza without emergent concern. Diagnostic studies of: -XR chest-shows no pneumonia. Interventions of: -None. ED Course/Assessment/Plan: Counseled the patient on taking iadv-jph-fdeaork cold medicines to get over the flu, counseled that there was no antibiotic to give, no need for any intervention at this time, strict return criteria for respiratory distress. Patient asked for Rx for mucinex on discharge. Findings not consistent with respiratory distress, sepsis. Disposition of influenza A. Patient verbalized understanding of the plan and return to ED criteria and engaged in shared decision making. Medical Records Medical records reviewed: Yes I reviewed the patient's medical records. Imaging Data Radiologic Study: Attestation: I personally reviewed and interpreted this imaging study as f xuanchante: Imaging: X-Ray Radiologist's impression: EXAM: XR CHEST 2V PA LATERAL CLINICAL HISTORY: cough. TECHNIQUE: 2D digital imaging was performed. COMPARISON: No exams were available for comparison FINDINGS: 2 views: Heart size is normal. The mediastinum is not widened. Small calcified granuloma in the right upper lobe There are no confluent infiltrates nor pleural effusions. No pulmonary edema. No fractures. No pneumothorax. IMPRESSION: No acute pulmonary findings. Quality:SDOH Health Related Social Needs: No Data to Display PFSH All Active Problems (Updated 03/31/24 @ 17:44 by SANTA Sethi) Influenza A (Acute) Tinnitus, bilateral (Acute) Internal derangement of right knee (Acute) Diverticulosis large intestine w/o perforation or abscess w/o bleeding (Acute ~06/13/18) Colorectal polyps (Acute ~06/13/18) Encounter for screening colonoscopy (Acute) Medical History Dyslipidemia Lumbosacral radiculopathy Surgical History H/O right knee surgery S/P colonoscopy (~06/13/18) Social History Smoking/Tobacco Use Status: Former Tobacco Use Quit Date: 02/09/88 Smoking risk assessment performed?: Yes Alcohol Intake: current Alcohol Intake frequency: holidays/special occasions only Alcohol type: beer Drug use: Occasionally Substance use type: marijuana Details: alcohol: t-7, marijuana: t-7, edibles Housing: house Current gender identity: male Do you feel safe at home: Yes Do you feel safe in your relationship?: Yes
== END 2024-03-31 17:46 | disposition home or self-care (01) ==
PROVIDERS: Emergency Provider Physician Assistant; PCP Family Medicine
DX: J09.X2 Influenza due to identified novel influenza A virus with other respiratory manifestations (principal)
CPT/HCPCS: 99283; 71046

== ENCOUNTER 2024-07-24 00:15 | Outpatient (CLI) | payer MEDICARE, SELFPAY ==
--- NOTE | 2024-07-24 | DI.US_ITS ---
Exam(s) US SOFT TISS ABD WALL/LOW BACK EXAM: US SOFT TISS ABD WALL/LOW BACK CLINICAL HISTORY: Mobile nontender 2 cm subcutaneous mass, center chest below sternum,. TECHNIQUE: Ultrasound was performed using standard protocol. COMPARISON: No exams were available for comparison FINDINGS: Sonographic assessment utilizing grayscale and color Doppler imaging was performed and targeted to the area of clinical concern. There is a 1.1 x 0.4 x 0.8 cm well-circumscribed mass inferior to the sternum corresponding to the region of interest. It is isoechoic to the surrounding fat and likely reflects a lipoma. IMPRESSION: 1.1 x 0.4 x 0.8 cm subcutaneous mass corresponding to the palpable abnormality. Sonographically, this likely represents a lipoma. DATA REPOSITORY:
== END 2024-07-24 00:35 ==
LOC: DI 00:15
PROVIDERS: PCP Family Medicine
DX: R22.2 Localized swelling, mass and lump, trunk (principal)
CPT/HCPCS: 76705

== ENCOUNTER 2024-10-16 10:23 | Outpatient (CLI) | payer MEDICARE, SELFPAY ==
[2024-10-16 07:27] LABS: HCT 41.9 % (40.0-50.0); HGB 13.8 g/dL (13.5-17.5); MCH 29.4 pg (27.0-33.0); MCHC 32.9 % (32.0-36.0); MCV 89 fL (80-95); MPV 10.1 fL (8.0-11.0); Platelet Count 145 10^3/uL (130-400); RBC 4.69 10^6/uL (4.36-5.78); RDW 13.4 % (11.8-14.1); RDW-SD 43.9 fL; WBC 6.76 10^3/uL (4.4-10.8)
[2024-10-16 07:54] LABS: Hemoglobin A1C 5.6 % (<5.7)
[2024-10-16 07:58] LABS: ALT 23 U/L (16-63); AST 13 U/L (15-37); Albumin 3.7 g/dL (3.4-5.0); Alkaline Phosphatase 59 U/L (46-116); Anion Gap 5.7 mmol/L (3-11); BUN 17 mg/dL (7-18); Bilirubin, Total 0.6 mg/dL (0.2-1.0); CO2 31.3 mmol/L (21.0-32.0); Calcium 8.9 mg/dL (8.5-10.1); Chloride 108 mmol/L (98-107); Estimated GFR 73.12 (mL/min/1.73m2); Glucose 111 mg/dL (74-106); Potassium 4.8 mmol/L (3.5-5.1); Sodium 145 mmol/L (136-145); Total Protein 7.0 g/dL (6.4-8.2)
[2024-10-16 17:40] LABS: PSA, Screening 1.9 ng/mL (<=4.5)
== END 2024-10-16 10:24 | disposition home or self-care (01) ==
LOC: LBO 10:24
PROVIDERS: PCP Family Medicine; Visit Provider Internal Medicine
DX: Z12.5 Encounter for screening for malignant neoplasm of prostate (principal)
CPT/HCPCS: 36415; 80053; 80061; 84153; 85027; 83036